=== PATIENT | female | born 1945 | race Caucasian/White ===

== ENCOUNTER 2016-06-08 11:20 | Inpatient (IN) | payer MEDICARE, OTHER ==
[~2016-06-08] VITALS: Ht 152.4 cm; Wt 65.5 kg
[2016-06-08 11:25] VITALS: BP 139/77; PULSE 97; RESP 18; O2SAT 96
--- NOTE | 2016-06-08 11:48 | ED.REPORT ---
HPI-General Illness Date of Service Jun 08, 2016 ED Provider: Amol Bryant DO 70 year old female with large B-cell lymphoma presents to the ER accompanied by her daughter complaining of several weeks of fever and chills. Symptoms presented with hematuria earlier this month, at which time she was placed on a course of Ciprofloxacin May 28 - June 04. She was seen at urgent care in [facility] last night where she was treated with IV fluids and single dose IV antibiotics, received blood and urine tests, and diagnosed with kidney infection. Associated symptoms include pruritic facial rash that awakened her from sleep last night, shortness of breath, increased urinary frequency, urinary incontinence, two bouts of vomiting between 3 and 5 days ago, mild sore throat, and chronic abdominal pain secondary to underlying cancer diagnosis. Patient denies cough, and throat swelling. Patient has been undergoing regular chemotherapy treatments, last treatment was May 13, 2016. Nursing Notes Stated Complaint: CHILLS/POSSIBLE KIDNEY INFECTION Chief Complaint: General Complaint Nursing Notes Reviewed: Yes Allergies: Coded Allergies: Sulfa (Sulfonamide Antibiotics) (Verified Allergy, Severe, Hives, 06/08/16) Beta-Blockers (Beta-Adrenergic Bloc (Verified Adverse Reaction, Severe, swelling, 06/08/16) TAPE (Verified Adverse Reaction, Severe, Rash, 06/08/16) gabapentin (Verified Adverse Reaction, Severe, leg swelling, 06/08/16) Scheduled Esomeprazole Magnesium (Nexium) 20 Mg Capsule.dr 20 MG PO DAILY Fexofenadine (Fexofenadine) 60 Mg Tablet 60 MG PO HS Losartan Potassium (Losartan Potassium) 50 Mg Tablet 50 MG PO QAM Lovastatin (Lovastatin) 20 Mg Tablet 20 MG PO HS Metformin (Metformin) 500 Mg Tablet 500 MG PO BID Scheduled PRN Lorazepam (Ativan) 0.5 Mg Tablet 0.5 MG PO DAILY PRN PRN For Anxiety or Agitation Ondansetron ODT (Ondansetron ODT) 4 Mg Tab.rapdis 4 MG PO DAILY PRN PRN For Nausea Prochlorperazine Maleate (Prochlorperazine) 10 Mg Tablet 10 MG PO DAILY PRN PRN For Nausea General Time Seen by MD: 11:44 Chief Complaint Fever Hx Obtained From: Patient Arrived By: Walk-in Onset Occurred: More than a week ago... (4 weeks) Symptom Duration: Since onset Associated with: Reports: Nausea, Rash, Shortness of breath, Vomiting, Denies: Cough Context Related History: Reports Cancer Recent Healthcare: Recent doctor visit Past Medical History Past Medical History Notes: Oncologist: Adriane Bonner, [facility] ([place], [place]) [employer] Past Medical History UTI Kidney stones Reports: Cancer (Lymphoma) Smoking History Unknown if Ever Smoker Social History Other Social History: Good social support Ambulatory Status Independent Review of Systems Full Review of Systems Constitutional: Reports: Chills, Fever Ears / Nose / Throat: Reports: Sore throat, Denies: Throat swelling, Tongue swelling Respiratory: Reports: Shortness of breath, Denies: Non-productive cough Cardiovascular: Denies: Chest pain GI: Reports: Abdominal pain, Nausea, Vomiting, Denies: Constipation, Diarrhea, Hematemesis, Hematochezia Female: Reports: Flank pain, Hematuria, Incontinence, Urinary frequency Musculoskeletal: Reports: Back pain Skin: Reports Itching, Reports Rash Neurologic: Denies: Numbness Complete sys rev & neg: except as marked. Physical Exam Vital Signs Vital Signs Date Time Temp Pulse Resp B/P Pulse Ox O2 Delivery O2 Flow Rate FiO2 06/08/16 14:54 74 21 139/67 97 Room Air 06/08/16 11:25 36.9 97 18 139/77 96 Room Air Initial VS: Reviewed Head / Eyes: Atraumatic, Normocephalic Neck: Supple, Non-tender, Full range of motion Extremities: Vascular intact, Neuro intact, No swelling, No tenderness Neurologic: Alert, Oriented, Nonfocal Psychiatric: Mood/affect normal, Behavior normal, Normal thought content General/Constitutional: Awake, Alert Respiratory / Chest: Breath sounds NL, No respiratory distress, No rales, No rhonchi, No wheezing Cardiovascular: Heart rate NL, Regular rhythm, Heart sounds NL, Cap refill not delayed, Peripheral circulation NL Back: Full range of motion, No midline vertebral tend Left CVA tenderness Skin: Warm, Dry, Intact Color / Condition: Positive: Rash present Rash / Lesion Notes: Malar rash Rash / Lesion Location: Positive: Face Interpretation & Diagnostics Lab Results Interpretation Result Diagram: 06/08/16 1210 06/08/16 1210 Test 06/08/16 12:10 06/08/16 14:14 White Blood Count 5.8th/mm3 (3.8-10.1) Red Blood Count 2.90mil/mm3 (3.90-5.20) Hemoglobin 8.3g/dL (12.0-15.6) Hematocrit 26.2% (35.0-46.0) Mean Corpuscular Volume 90.3fL (81-100) Mean Corpuscular Hemoglobin 28.6pg (27.0-35.0) Mean Corpuscular Hemoglobin Concent 31.7% (32.0-37.0) Red Cell Distribution Width 15.7% (12.3-15.4) Platelet Count 64bil/L (150-400) Neutrophils (%) (Auto) 78.1% (40-74) Lymphocytes (%) (Auto) 6.4% (14-46) Monocytes (%) (Auto) 13.6% (4-12) Eosinophils (%) (Auto) 1.2% (0-5) Basophils (%) (Auto) 0.5% (0-3) Sodium Level 134mEq/L (134-144) Potassium Level 3.4mEq/L (3.5-5.2) Chloride Level 98mEq/L (97-108) Carbon Dioxide Level 21mmol/L (18-29) Blood Urea Nitrogen 16mg/dL (8-27) Creatinine 0.80mg/dL (0.57-1.00) Estimat Glomerular Filtration Rate 102mL/min (>59) Glucose Level 138mg/dL (60-99) Lactic Acid Level 0.9mmol/L (0.4-2.0) Calcium Level 9.7mg/dL (8.5-10.1) Magnesium Level 1.1mg/dL (1.6-2.6) Total Bilirubin 0.3mg/dL (0.0-1.2) Aspartate Amino Transf (AST/SGOT) 20U/L (0-50) Alanine Aminotransferase (ALT/SGPT) 7U/L (0-32) Alkaline Phosphatase 60U/L (25-165) Total Protein 5.8g/dL (6.4-8.4) Albumin 3.1g/dL (3.4-5.0) Lipase 20U/L (13-60) Urine Color Straw (YELLOW) Urine Appearance Hazy (CLEAR,HAZY) Urine pH 6.5 (5.0-8.0) Urine Specific [place] 1.015 (1.003-1.035) Urine Protein Tracemg/dL (NEG,TRACE) Urine Glucose (UA) Negativemg/dL (NEGATIVE) Urine Ketones Negativemg/dL (NEGATIVE) Urine Occult Blood Large (NEGATIVE) Urine Nitrite Negative (NEGATIVE) Urine Bilirubin Negative (NEGATIVE) Urine Urobilinogen Normalmg/dL (NORMAL) Urine Leukocyte Esterase Trace (NEGATIVE) Urine RBC 11-50/hpf (0-2) Urine WBC 6-10/hpf (0-5) Urine Epithelial Cells Occasional/hpf (NONE-MOD) Urine Crystals None seen (NONE SEEN) Urine Bacteria None/hpf (NONE-FEW) Urine Hyaline Casts None/lpf (NONE) Urine Granular Casts None seen (NONE SEEN) Urine Waxy Casts None seen (NONE SEEN) Urine Red Blood Cell Casts None seen (NONE SEEN) Urine White Blood Cell Casts None seen (NONE SEEN) Urine Mucus None seen (None Seen) Urine Trichomonas None seen (NONE SEEN) Urine Yeast None (NONE SEEN) Urinalysis Comment None Urine Culture Reflexed Indicated CT Abd / Pelvis Interpretation IMPRESSION: 1. Enlarged heterogeneous appearance of the left kidney with appearance of multiple soft tissue masses appearing within the renal parenchyma as well as within the exophytic regions. There are also ill-defined soft tissue density is identified superior to the kidney at the confluence of the stomach and spleen as well as the medial aspect of the kidney at the level of the aorta encompassing the renal artery and vein. Overall appearance appears most suggestive of given history of lymphoma involvement. However, lack of IV contrast and prior exams limit evaluation. Superimposed or other etiologies such as infection or inflammation include pyelonephritis or potentially areas of renal infarction secondary to tumor involvement of the renal vasculature cannot be excluded. The findings were discussed with Dr. Amol Bryant on 06/08/16 at 2:20 PM. Dictated by: Lizzie Morin M.D. on 06/08/2016 at 14:13 Approved by: Lizzie Morin M.D. on 06/08/2016 at 14:39 Study type: Abdominal CT no contrast Interpretation / Wet Read by: Interpret - Radiologist Re-Eval/Medical Decision Med Decision/Clinical Course This is an immunocompromise patient with signs and symptoms of pyelonephritis associated with Moreno's and chills generalized weakness. She does not have septic parameters based on lab value however this is obscured by recent antibiotic use and again immunocompromise. Conversation is had with her primary oncologist who recommended conservative management if there is any question as to whether or not the patient could be having septic. After discussion with the patient she continues to feel ill despite interventions in the ER and they do have concern that this could be occult bacteremia and should warrant hospitalization given the fragility of her medical conditions and associated immunocompromise. Source of Hx: Old records, Family Summary of Info: Na 127 Creatinine 1.06 WBC 9 Hgb 9.8 Platelet 103 Urine Culture 05/28/16: mixed urogenital felipe Time of Eval: 14:12 Re-Evaluation/Progress Note: Patient's rash is marginally improved. Updated her on the plan of care. Time of Eval: 14:50 Re-Evaluation/Progress Note: Discussed lab and CT results, physical examination findings and plan to discharge. Patient is amenable to the plan. Return precautions given. All other questions addressed. Consultation #1: Consulted With: On-call physician (Radiology) Call Returned at: 14:29 Note: Radiology called to discuss patient's CT results. Consultation #2: Consulted With: On-call physician (Oncology) Call Returned at: 14:37 Note: Discussed patient's case with her oncologist, Dr. Adriane Bonner. Comfortable with discharging the patient if she is not septic. Consultation #3: Referral / Consult Name: Tatianna Camp MD Consulted With: Hospitalist Call Returned at: 15:40 Note: Spoke with Dr. Camp who states Dr. Ledezma will be accepting the admit and recommends paging Dr. Ledezma. States that if Dr. Ledezma unable to take admit Dr. Camp will accept admit at a later time. Consultation #4: Referral / Consult Name: Frank Ledezma MD Consulted With: Hospitalist Call Returned at: 15:55 Dyno Technician: Accepts admit Counseled Regarding: Diagnosis, Lab results, Need for admission Discharge & Departure Primary Impression: Pyelonephritis Disposition: ADMITTED TO HOSPITAL Discharge Condition All VS Reviewed: Yes Condition: Stable Scribe Attestation Portions of this note were transcribed by Antonio Pond. I, Dr. Bryant, personally performed the history, physical exam and medical decision-making; I reviewed and confirmed the accuracy of the information in the transcribed note. Signed by: Abhijit Pettit, 06/08/2016 and 15:11 Amol Bryant DO Jun 08, 2016 11:48 ANTONIO POND Jun 08, 2016 12:04
[2016-06-08] MEDS ORDERED: 0.9% Sodium Chloride 1,000 ML IV ONE (12:25)
[2016-06-08] MEDS ORDERED: diphenhydrAMINE 25 mg Capsule PO ONE (12:30)
[2016-06-08 12:43] LABS: BASOPHILS % (AUTO) 0.5 % (0-3); EOSINOPHILS % (AUTO) 1.2 % (0-5); MONOCYTES % (AUTO) 13.6 % (4-12); Mean Corpuscular Hemoglobin 28.6 pg (27.0-35.0); Mean Corpuscular Volume 90.3 fL (81-100); NEUTROPHILS % (AUTO) 78.1 % (40-74); Platelet Count 64 bil/L (150-400)
[2016-06-08] MEDS: Ondansetron 2 mg/mL 2 mL Inj IVPUSH PRN ×2 (12:55→17:46)
[2016-06-08 13:13] LABS: Magnesium 1.1 mg/dL (1.6-2.6)
[2016-06-08] MEDS ORDERED: Magnesium Sulf 4 Gm/100 mL H2O 4 GM in IV Premix 1 EACH IV ONE (13:20)
[2016-06-08 14:41] LABS: APPEARANCE,URINE HAZY (CLEAR,HAZY); COLOR,URINE STRAW (YELLOW); OCCULT BLOOD,URINE LARGE (NEGATIVE); PH,URINE 6.5 (5.0-8.0)
--- NOTE | 2016-06-08 14:41 | DRSVH ---
PROCEDURE: CT KUB ([id number]) INDICATIONS: flank pain, hematuria, chills TECHNIQUE: Noncontrast 5 mm thick sections acquired from the diaphragms to the symphysis. 5 mm thick coronal an d sagittal reformats were then performed. For radiation dose reduction, the following was used: aut omated exposure control, adjustment of mA and/or kV according to patient size. COMPARISON: None. FINDINGS: Image quality: Excellent. Lung bases: Lung bases are clear. Heart size is normal. Urinary system: The right kidney and ureter are unremarkable. The left kidney appears enlarged. Ther e are multiple areas of heterogeneous soft tissue attenuation identified within the renal parenchyma as well as exophytic areas within the superior and inferior poles. There is prominent perinephric str anding as well as poorly defined soft tissue masses along the superior aspect of the kidney at the co nfluence of the spleen and stomach. There is soft tissue density identified medial to the left kidney and direct approximation to the aorta obscured evaluation of the renal artery and renal vein at this level. There is a 2 mm calcification identified within the lower pole. While there is a slight promi nence of the left renal collecting system, gross obstruction is not well delineated. There is a poorl y defined soft tissue density are also noted along the medial aspect of the stomach as well as nodula r areas within the mesentery of the left upper quadrant. Both ureters appear non-dilated throughout t heir expected courses. Bladder wall thickness is normal; no calcified bladder stones. Other solid organs: Liver and spleen are normal in size. Gallbladder is unremarkable. Pancreas is normal in contours. No adrenal nodules. Peritoneum and bowel: Unenhanced bowel loops demonstrate normal wall thickness and caliber. No free fluid or air. Nodes and vessels: No retroperitoneal or mesenteric adenopathy by size criteria. Aorta and inferior vena cava are normal in caliber. Abdominal wall: No ventral hernias. Pelvis: No free pelvic fluid. No inguinal hernias or adenopathy. Bones: No suspicious bony lesions. No vertebral body compression fractures. IMPRESSION: 1. Enlarged heterogeneous appearance of the left kidney with appearance of multiple soft tissue meaghan s appearing within the renal parenchyma as well as within the exophytic regions. There are also ill-d efined soft tissue density is identified superior to the kidney at the confluence of the stomach and spleen as well as the medial aspect of the kidney at the level of the aorta encompassing the renal ar mekhi and vein. Overall appearance appears most suggestive of given history of lymphoma involvement. H owever, lack of IV contrast and prior exams limit evaluation. Superimposed or other etiologies such a s infection or inflammation include pyelonephritis or potentially areas of renal infarction secondary to tumor involvement of the renal vasculature cannot be excluded. The findings were discussed with Dr. Amol Bryant on 06/08/16 at 2:20 PM. Dictated by: Lizzie Morin M.D. on 06/08/2016 at 14:13 Approved by: Lizzie Morin M.D. on 06/08/2016 at 14:39
[2016-06-08 14:42] LABS: UROBILINOGEN,URINE NORMAL (NORMAL)
[2016-06-08 14:54] VITALS: BP 139/67; PULSE 74; RESP 21; O2SAT 97
[2016-06-08] MEDS ORDERED: Piperacillin-Tazo 3.375 Gm Inj 3.375 GM in Dextrose 5% Minibag Plus 50 ML IV ONE (14:55)
[2016-06-08] MEDS ORDERED: FEXO-46 PO (15:25)
[2016-06-08] MEDS ORDERED: METF500T4 PO (15:25)
[2016-06-08] MEDS ORDERED: LOVA20TA PO (15:25)
[2016-06-08] MEDS ORDERED: LORA-302 PO (15:25)
[2016-06-08] MEDS ORDERED: ESOM20CA28 PO (15:25)
[2016-06-08] MEDS ORDERED: PROC10TA PO (15:25)
[2016-06-08] MEDS ORDERED: LOSA50TA37 PO (15:25)
[2016-06-08] MEDS ORDERED: ONDA4TAB12 PO (15:25)
[2016-06-08] MEDS ORDERED: Alum-Mag Hydrox-Simeth 30 mL Suspension PO PRN (16:05)
--- NOTE | 2016-06-08 16:18 | PCM.HPMED ---
Subjective Date of Service Jun 08, 2016 Primary Provider: Admitting Physician: Frank Ledezma MD Primary Care Physician: Johnnie Jimenez Attending Physician: Frank Ledezma MD Chief Complaint: Fever, chills, UTI History of Present Illness: 70 year old female with large B-cell lymphoma involving intra-abdominal structures , currently in chemotherapy last session being on 05/13/2016, she is schedule for the next session on 06/13/2016. Patient was sent to the emergency room by her primary oncologist due to symptom of cough rash, being shaky and having chills after she received cefuroxime at an urgent care for urinary septum. Patient reported that she has been having hematuria earlier this month for which she was put on ciprofloxacin. She took the Cipro for 10 days of last Saturday. Her urinary symptom symptoms recurred and last night where she was treated with IV fluids and single dose IV antibiotics, received blood and urine tests, and diagnosed with kidney infection. Associated symptoms include pruritic facial rash that awakened her from sleep last night, shortness of breath, increased urinary frequency, urinary incontinence, two bouts of vomiting between 3 and 5 days ago, mild sore throat, and chronic abdominal pain secondary to underlying cancer diagnosis. Patient denies cough, and throat swelling. She was instructed by her primary oncologist to come to the hospital for further evaluation. Review of Systems: Review of symptom by 12 points is negative except for what is described above in history of present illness Allergies Coded Allergies: Sulfa (Sulfonamide Antibiotics) (Verified Allergy, Severe, Hives, 06/08/16) Beta-Blockers (Beta-Adrenergic Bloc (Verified Adverse Reaction, Severe, swelling, 06/08/16) TAPE (Verified Adverse Reaction, Severe, Rash, 06/08/16) gabapentin (Verified Adverse Reaction, Severe, leg swelling, 06/08/16) Home Medications Scheduled Esomeprazole Magnesium (Nexium) 20 Mg Capsule.dr 20 MG PO DAILY Fexofenadine (Fexofenadine) 60 Mg Tablet 60 MG PO HS Losartan Potassium (Losartan Potassium) 50 Mg Tablet 50 MG PO QAM Lovastatin (Lovastatin) 20 Mg Tablet 20 MG PO HS Metformin (Metformin) 500 Mg Tablet 500 MG PO BID Scheduled PRN Lorazepam (Ativan) 0.5 Mg Tablet 0.5 MG PO DAILY PRN PRN For Anxiety or Agitation Ondansetron ODT (Ondansetron ODT) 4 Mg Tab.rapdis 4 MG PO DAILY PRN PRN For Nausea Prochlorperazine Maleate (Prochlorperazine) 10 Mg Tablet 10 MG PO DAILY PRN PRN For Nausea PMH Lymphoma, UTI Surgical History None Family History Family history reviewed and is noncontributory to the present illness Social History Hx Alcohol Use: No Hx Substance Use: No Smoking Status: Unknown if Ever Smoker Living Arrangement: with Family Exam Vital Signs Vital Sign - Last Date Time Temp Pulse Resp B/P Pulse Ox O2 Delivery O2 Flow Rate FiO2 06/08/16 14:54 74 21 139/67 97 Room Air 06/08/16 11:25 36.9 Exam Chronically ill-appearing female. In bed comfortably very pleasant. HEENT : Normocephalic and atraumatic, sclerae anicteric. Mouth:no oral thrush. Moist oral mucosa Neck: Supple, no cervical lymphadenopathy, no JVD, trachea is midline Chest: Normal respiratory effort, no use of accessory muscle of respiration. Lungs: Clear bilaterally,, no wheezing. heart: s1, s2 regular rate and rhythm, no gallop, no murmur. abdomen: soft, audible bowel sounds are quite. tenderness left flank area and there is a palpable mass Extremity: No edema, no cyanosis, tenderness Skin: No rash, no ulcers. Neuro : Awake, alert, oriented 3. Grossly non focal Lab and Diagnostics Result Diagram: 06/08/16 1210 06/08/16 1210 Microbiology Urine culture and blood culture all pending X-Rays, CTs and MRIs Abdominal CT scan reviewed; Image quality: Excellent. Lung bases: Lung bases are clear. Heart size is normal. Urinary system: The right kidney and ureter are unremarkable. The left kidney appears enlarged. There are multiple areas of heterogeneous soft tissue attenuation identified within the renal parenchyma as well as exophytic areas within the superior and inferior poles. There is prominent perinephric stranding as well as poorly defined soft tissue masses along the superior aspect of the kidney at the confluence of the spleen and stomach. There is soft tissue density identified medial to the left kidney and direct approximation to the aorta obscured evaluation of the renal artery and renal vein at this level. There is a 2 mm calcification identified within the lower pole. While there is a slight prominence of the left renal collecting system, gross obstruction is not well delineated. There is a poorly defined soft tissue density are also noted along the medial aspect of the stomach as well as nodular areas within the mesentery of the left upper quadrant. Both ureters appear non-dilated throughout their expected courses. Bladder wall thickness is normal; no calcified bladder stones. Other solid organs: Liver and spleen are normal in size. Gallbladder is unremarkable. Pancreas is normal in contours. No adrenal nodules. Peritoneum and bowel: Unenhanced bowel loops demonstrate normal wall thickness and caliber. No free fluid or air. Nodes and vessels: No retroperitoneal or mesenteric adenopathy by size criteria. Aorta and inferior vena cava are normal in caliber. Abdominal wall: No ventral hernias. Pelvis: No free pelvic fluid. No inguinal hernias or adenopathy. Bones: No suspicious bony lesions. No vertebral body compression fractures. IMPRESSION: 1. Enlarged heterogeneous appearance of the left kidney with appearance of multiple soft tissue masses appearing within the renal parenchyma as well as within the exophytic regions. There are also ill-defined soft tissue density is identified superior to the kidney at the confluence of the stomach and spleen as well as the medial aspect of the kidney at the level of the aorta encompassing the renal artery and vein. Overall appearance appears most suggestive of given history of lymphoma involvement. However, lack of IV contrast and prior exams limit evaluation. Superimposed or other etiologies such as infection or inflammation include pyelonephritis or potentially areas of renal infarction secondary to tumor involvement of the renal vasculature cannot be excluded. The findings were discussed with Dr. Amol Bryant on 06/08/16 at 2:20 PM. Dictated by: Lizzie Morin M.D. on 06/08/2016 at 14:13 Approved by: Lizzie Morin M.D. on 06/08/2016 at 14:39 Assessment & Plan 1. Complicated UTI : Start Zosyn 3.375 mg IV q8H. patient was initially treated with empiric Cipro for symptom of UTI for 10 days. Symptoms after ciprofloxacin course was completed. Patient received cefuroxime and develop allergic reaction ( rash) but no swelling or shortness of breath. CT scan on presentation show mass involving left kidney. Possible paranoid nephritis as well. No hydronephrosis Obtain urine culture, blood culture. Consider consult urology. 2. Pyelonephritis : Zosyn 3. History of lymphoma.: Patient last chemotherapy session was on 05/13/2016. Next session is scheduled for next Saturday06/13/2016 . Her oncologist is . The finding of the CT scan shows There are multiple areas of heterogeneous soft tissue attenuation identified within the renal parenchyma as well as exophytic areas within the superior and inferior poles. There is prominent perinephric stranding as well as poorly defined soft tissue masses along the superior aspect of the kidney at the confluence of the spleen and stomach. There is soft tissue density identified medial to the left kidney and direct approximation to the aorta obscured evaluation of the renal artery and renal vein at this level These lesions are not new per daughter at bedside who keep record of her medical issues . She will follow up with her primary oncologist on discharge . 4. Hypokalemia : Replace electrolytes when necessary 5. Hypomagnesemia : The patient magnesium 6. Immunocompromised : Secondary to chemotherapy. She is not no troponin at this time 8. Pancytopenia: Secondary to chemotherapy This is a very sick patient, immunocompromised, currently on chemotherapy for lymphoma of the abdomen. She failed outpatient treatment to UTI and now developed pyelonephritis. Plan is for his antibiotics with Zosyn. Given her exposure to antibiotics recently we may not be able to catch anything and her urine culture. SCD for DVT prophylaxis. Tylenol when necessary for pain and fever. Zofran for nausea and vomiting Benadryl for itching. Hospital stay revealing 2-3 days is anticipated in recovery is expected Time spent 75 minutes Frank Ledezma MD Jun 08, 2016 16:18
[2016-06-08] MEDS: 0.9% Sodium Chloride 1,000 ML IV SCH (17:22)
[2016-06-08 17:31] VITALS: BP 137/78; PULSE 75; RESP 16; O2SAT 98
--- NOTE | 2016-06-08 18:04 | NUR ---
Admit Pt arrived on the unit at 1700. Brought up via wheelchair by ED staff. NS running at 100ml/hr through portacath. She complains of L flank pain and was given tylenol x1. Also reports nausea and was given zofran x1. Has a pink, irregular rash on her face and was given PRN benadryl. Oriented to room, call light, and instructed to call for assistance when getting out of bed.
[2016-06-08 20:26] VITALS: BP 111/63; PULSE 70; RESP 16; O2SAT 94
[2016-06-09] VITALS (10 sets, daily range): BP systolic 120–163; BP diastolic 61–81; PULSE 68–93; RESP 14–20; O2SAT 94–100
[2016-06-09] MEDS: Piperacillin-Tazo 3.375 Gm Inj 3.375 GM in Dextrose 5% Minibag Plus 50 ML IV SCH ×3 (01:03→17:08)
[2016-06-09] MEDS: Ondansetron 2 mg/mL 2 mL Inj IVPUSH PRN ×3 (01:08→16:47)
--- NOTE | 2016-06-09 05:49 | NUR ---
Pain/Nausea/Rash/Chills Medicated x 1 w/tylenol , IV benadryl , and Zosyn w/effect Facial rash improving , did experience episode of chills w/out fever
[2016-06-09] MEDS: 0.9% Sodium Chloride 1,000 ML IV SCH (07:45)
[2016-06-09 09:02] LABS: Mean Corpuscular Hemoglobin 28.2 pg (27.0-35.0); Mean Corpuscular Volume 90.6 fL (81-100)
[2016-06-09 10:08] LABS: Magnesium 1.8 mg/dL (1.6-2.6)
[2016-06-09] MEDS ORDERED: LORazepam 0.5 mg Tablet PO PRN (11:00)
[2016-06-09 11:48] LABS: BASOPHILS % (AUTO) 0.3 % (0-3); EOSINOPHILS % (AUTO) 4.1 % (0-5); MONOCYTES % (AUTO) 14.7 % (4-12); NEUTROPHILS % (AUTO) 68.6 % (40-74)
--- NOTE | 2016-06-09 15:24 | PCM.PNMED ---
Subjective Date of Service Jun 09, 2016 Subjective Follow-up follow computed UTI, pyelonephritis, abdominal pain, anemia secondary to chemotherapy. Patient seen and examined at bedside. She is feeling somewhat better today abdominal pain is quite slight and no nausea no vomiting. Hemoglobin dropped to 7.2 today. No melena, no hematuria, no hemoptysis or hematemesis. Platelet count is 56 Exam Vital Signs Vital Sign - Last Date Time Temp Pulse Resp B/P Pulse Ox O2 Delivery O2 Flow Rate FiO2 06/09/16 12:54 36.9 69 14 146/81 98 Room Air Intake and Output 06/08/16 06/08/16 06/09/16 Cumulative From/Thru 15:00 23:00 07:00 06/08/16 11:25 - 06/09/16 06:29 Intake Total 1000 ml 2240 ml 3240 ml Output Total 1250 ml 1250 ml Balance 1000 ml 990 ml 1990 ml Intake Oral 360 ml 360 ml IV Total 1000 ml 1880 ml 2880 ml Output Urine Total 1250 ml 1250 ml # Voids 1 1 # Bowel Movements 0 0 Exam Chronically : In bed comfortably very pleasant. NAD HEENT : sclerae anicteric. Mouth:no oral thrush. Moist oral mucosa Neck: No cervical lymphadenopathy, no JVD, trachea is midline. Chest: No use of accessory muscle of respiration. Lungs: Clear bilaterally,, no wheezing, No crackles Heart: Normophonetic Abdomen: BS all quadrants. Mild left flank tenderness. Skin: No rash, no ulcers. Neuro : Awake, alert, oriented 3. Grossly non focal IVs and Medications Medications Reviewed: Medications were reviewed in detail Lab and Diagnostics Result Diagram: 06/09/16 0706/09/16 07 Microbiology Urine culture and blood culture all pending X-Rays, CTs and MRIs Abdominal CT scan reviewed; Image quality: Excellent. Lung bases: Lung bases are clear. Heart size is normal. Urinary system: The right kidney and ureter are unremarkable. The left kidney appears enlarged. There are multiple areas of heterogeneous soft tissue attenuation identified within the renal parenchyma as well as exophytic areas within the superior and inferior poles. There is prominent perinephric stranding as well as poorly defined soft tissue masses along the superior aspect of the kidney at the confluence of the spleen and stomach. There is soft tissue density identified medial to the left kidney and direct approximation to the aorta obscured evaluation of the renal artery and renal vein at this level. There is a 2 mm calcification identified within the lower pole. While there is a slight prominence of the left renal collecting system, gross obstruction is not well delineated. There is a poorly defined soft tissue density are also noted along the medial aspect of the stomach as well as nodular areas within the mesentery of the left upper quadrant. Both ureters appear non-dilated throughout their expected courses. Bladder wall thickness is normal; no calcified bladder stones. Other solid organs: Liver and spleen are normal in size. Gallbladder is unremarkable. Pancreas is normal in contours. No adrenal nodules. Peritoneum and bowel: Unenhanced bowel loops demonstrate normal wall thickness and caliber. No free fluid or air. Nodes and vessels: No retroperitoneal or mesenteric adenopathy by size criteria. Aorta and inferior vena cava are normal in caliber. Abdominal wall: No ventral hernias. Pelvis: No free pelvic fluid. No inguinal hernias or adenopathy. Bones: No suspicious bony lesions. No vertebral body compression fractures. IMPRESSION: 1. Enlarged heterogeneous appearance of the left kidney with appearance of multiple soft tissue masses appearing within the renal parenchyma as well as within the exophytic regions. There are also ill-defined soft tissue density is identified superior to the kidney at the confluence of the stomach and spleen as well as the medial aspect of the kidney at the level of the aorta encompassing the renal artery and vein. Overall appearance appears most suggestive of given history of lymphoma involvement. However, lack of IV contrast and prior exams limit evaluation. Superimposed or other etiologies such as infection or inflammation include pyelonephritis or potentially areas of renal infarction secondary to tumor involvement of the renal vasculature cannot be excluded. The findings were discussed with Dr. Amol Bryant on 06/08/16 at 2:20 PM. Dictated by: Lizzie Morin M.D. on 06/08/2016 at 14:13 Approved by: Lizzie Morin M.D. on 06/08/2016 at 14:39 Assessment & Plan 1. Complicated UTI : Continue Zosyn 3.375 mg IV q8H. I anticipate at least 3 days of IV antibiotics. Culture are pending 2. Pyelonephritis : Zosyn 3. History of lymphoma. Patient last chemotherapy session was on 05/13/2016. Next session is scheduled for next Saturday06/13/2016 . Her oncologist is Dr . The finding of the CT scan shows There are multiple areas of heterogeneous soft tissue attenuation identified within the renal parenchyma as well as exophytic areas within the superior and inferior poles. There is prominent perinephric stranding as well as poorly defined soft tissue masses along the superior aspect of the kidney at the confluence of the spleen and stomach. There is soft tissue density identified medial to the left kidney and direct approximation to the aorta obscured evaluation of the renal artery and renal vein at this level These lesions are not new per daughter at bedside who keep record of her medical issues . She will follow up with her primary oncologist on discharge . 4. Hypokalemia : Replace electrolytes when necessary 5. Hypomagnesemia : The patient magnesium 6. Immunocompromised : Secondary to chemotherapy. She is not no troponin at this time 8. Pancytopenia: Secondary to chemotherapy. Her hemoglobin today 7.2. I will transfuse her 2 units PRBC Patient is overall improved. Abdominal pain subsided as well has chills and fevers. Continue Zosyn for complicated UTI and pyelonephritis. Blood transfusion is being provided for severe anemia secondary to chemotherapy. VTE Prophylaxis: SCDs Resuscitation Status: CPR: Attempt Resuscitation Time spent 35 minutes Frank Ledezma MD Jun 09, 2016 15:24
--- NOTE | 2016-06-09 16:06 | NUR ---
Social work note - Initial assessment Antoinette Jolley is a 70 yr old admitted for pyelonephritis. EMR reviewed: Pt has Medicare and [employer]. Her PCP is at [facility]. Readmit score is 2. Pt does not have VA benefits or LTC insurance. See attached CM initial assessment. [employer] MAN met with pt - introduced d/c planning and explained SW role. Pt lives at home with her daughter and grand daughter in [place]. She is in cancer treatment and states that her family is supportive with rides to doctor appointments and support at home. She uses no DME, has grab bars in the shower and a shower chair if needed. She plans to d/c home when stable. Pt states she has an insurance casemanager from [employer] who is helpful - DRAG OUT MAN offered home health, pt declined at this time. DRAG OUT MAN asked Pt to bring in DPOA paperwork from home. No other needs identified. plan: Home with family in [place] when medically stable. CAIN Pierce Addendum: 06/09/16 at 1613 by ANNA PABLO SS Amended: Links added.
--- NOTE | 2016-06-09 16:34 | NUR ---
Temp/shivering Pt having uncontrolled shivering, temp 37.3. Hospitalist notified. Order received to draw blood cultures and then infuse PRBC's.
[2016-06-09] MEDS: 0.9% Sodium Chloride 250 ML IV SCH (18:31)
--- NOTE | 2016-06-09 19:42 | NUR ---
PRBC First of 2 unit prbc hung
[2016-06-09] MEDS ORDERED: 0.9% Sodium Chloride 100 ML ONE (21:17)
[2016-06-10 00:20] VITALS: BP 149/84; PULSE 60; RESP 17; O2SAT 97
[2016-06-10] MEDS: Piperacillin-Tazo 3.375 Gm Inj 3.375 GM in Dextrose 5% Minibag Plus 50 ML IV SCH ×3 (00:31→16:34)
[2016-06-10 04:41] VITALS: BP 144/76; PULSE 54; RESP 16; O2SAT 97
[2016-06-10] MEDS: 0.9% Sodium Chloride 1,000 ML IV SCH ×3 (04:41→08:01)
[2016-06-10 08:04] VITALS: BP 157/86; PULSE 60; RESP 16; O2SAT 99
[2016-06-10] MEDS: Ondansetron 2 mg/mL 2 mL Inj IVPUSH PRN ×3 (08:06→18:31)
[2016-06-10 09:02] LABS: BASOPHILS % (AUTO) 0.3 % (0-3); EOSINOPHILS % (AUTO) 4.1 % (0-5); MONOCYTES % (AUTO) 8.9 % (4-12); Mean Corpuscular Hemoglobin 28.6 pg (27.0-35.0); Mean Corpuscular Volume 88.4 fL (81-100); NEUTROPHILS % (AUTO) 75.6 % (40-74); Platelet Count 46 bil/L (150-400)
--- NOTE | 2016-06-10 10:50 | PCM.PNMED ---
Subjective Date of Service Jun 10, 2016 Subjective Follow up for complicate UTI, pyelonephritis , anemia S/p 2 units of PRBC yesterday and tolerated well . No CP, no SOB. afebrile Exam Vital Signs Vital Sign - Last Date Time Temp Pulse Resp B/P Pulse Ox O2 Delivery O2 Flow Rate FiO2 06/10/16 08:04 36.9 60 16 157/86 99 Room Air Intake and Output 06/09/16 06/09/16 06/10/16 Cumulative From/Thru 15:00 23:00 07:00 06/08/16 11:25 - 06/10/16 06:05 Intake Total 1598 ml 1949 ml 6787 ml Output Total 1500 ml 2750 ml Balance 1598 ml 449 ml 4037 ml Intake Oral 650 ml 240 ml 1250 ml IV Total 632 ml 1442 ml 4954 ml Packed Cells 316 ml 267 ml 583 ml Output Urine Total 1150 ml 2400 ml Urine/Stool Mix 350 ml 350 ml # Voids 6 7 # Bowel Movements 2 2 Exam Chronically : NAD, Pleasant HEENT : sclerae anicteric. Mouth:n Moist oral mucosa Neck: supple. No cervical lymphadenopathy, no JVD, trachea is midline. Chest: No use of accessory muscle of respiration. No chest wall tenderness Lungs: Clear bilaterally on auscultation,, no wheezing, No crackles Heart: S1S2, RRR no gallop Abdomen: BS all quadrants. Non tender, non distended . Skin: No rash, no ulcers. Neuro : Awake, alert, oriented 3. Grossly intact IVs and Medications Medications Reviewed: Medications were reviewed in detail Lab and Diagnostics Result Diagram: 06/10/16 0857 06/10/16 0857 Microbiology Urine culture and blood culture all pending X-Rays, CTs and MRIs Abdominal CT scan reviewed; Image quality: Excellent. Lung bases: Lung bases are clear. Heart size is normal. Urinary system: The right kidney and ureter are unremarkable. The left kidney appears enlarged. There are multiple areas of heterogeneous soft tissue attenuation identified within the renal parenchyma as well as exophytic areas within the superior and inferior poles. There is prominent perinephric stranding as well as poorly defined soft tissue masses along the superior aspect of the kidney at the confluence of the spleen and stomach. There is soft tissue density identified medial to the left kidney and direct approximation to the aorta obscured evaluation of the renal artery and renal vein at this level. There is a 2 mm calcification identified within the lower pole. While there is a slight prominence of the left renal collecting system, gross obstruction is not well delineated. There is a poorly defined soft tissue density are also noted along the medial aspect of the stomach as well as nodular areas within the mesentery of the left upper quadrant. Both ureters appear non-dilated throughout their expected courses. Bladder wall thickness is normal; no calcified bladder stones. Other solid organs: Liver and spleen are normal in size. Gallbladder is unremarkable. Pancreas is normal in contours. No adrenal nodules. Peritoneum and bowel: Unenhanced bowel loops demonstrate normal wall thickness and caliber. No free fluid or air. Nodes and vessels: No retroperitoneal or mesenteric adenopathy by size criteria. Aorta and inferior vena cava are normal in caliber. Abdominal wall: No ventral hernias. Pelvis: No free pelvic fluid. No inguinal hernias or adenopathy. Bones: No suspicious bony lesions. No vertebral body compression fractures. IMPRESSION: 1. Enlarged heterogeneous appearance of the left kidney with appearance of multiple soft tissue masses appearing within the renal parenchyma as well as within the exophytic regions. There are also ill-defined soft tissue density is identified superior to the kidney at the confluence of the stomach and spleen as well as the medial aspect of the kidney at the level of the aorta encompassing the renal artery and vein. Overall appearance appears most suggestive of given history of lymphoma involvement. However, lack of IV contrast and prior exams limit evaluation. Superimposed or other etiologies such as infection or inflammation include pyelonephritis or potentially areas of renal infarction secondary to tumor involvement of the renal vasculature cannot be excluded. The findings were discussed with Dr. Amol Bryant on 06/08/16 at 2:20 PM. Dictated by: Lizzie Morin M.D. on 06/08/2016 at 14:13 Approved by: Lizzie Morin M.D. on 06/08/2016 at 14:39 Assessment & Plan 1. Complicated UTI : Continue Zosyn 3.375 mg IV q8H for another 24 hours pending culture. ( So far negative) We may have a negative culture given exposure to antibiotics ( Cipro and cephalosporins) prior to admission 2. Pyelonephritis : Zosyn 3. History of lymphoma. Patient last chemotherapy session was on 05/13/2016. Next session is scheduled for next Saturday06/13/2016 . Her oncologist is Dr Molina The finding of the CT scan shows There are multiple areas of heterogeneous soft tissue attenuation identified within the renal parenchyma as well as exophytic areas within the superior and inferior poles. There is prominent perinephric stranding as well as poorly defined soft tissue masses along the superior aspect of the kidney at the confluence of the spleen and stomach. There is soft tissue density identified medial to the left kidney and direct approximation to the aorta obscured evaluation of the renal artery and renal vein at this level These lesions are not new per daughter at bedside who keep record of her medical issues . She will follow up with her primary oncologist on discharge . 4. Hypokalemia : Replace electrolytes when necessary 5. Hypomagnesemia : Improved 6. Immunocompromised : Secondary to chemotherapy. She is not no troponin at this time 8. Pancytopenia: Secondary to chemotherapy. S/p 2 units PRBC on 06/09/2015 due to hb of 7.2. Hb 9 now . Clinically improved Continue Zosyn for complicated UTI and pyelonephritis. Discharge anticipated within 24-48 hours . Patient will follow up with her primary oncologist on discharge for chemotherapy VTE Prophylaxis: SCDs Resuscitation Status: CPR: Attempt Resuscitation Time spent 25 minutes Frank Ledezma MD Jun 10, 2016 10:50
[2016-06-10] MEDS: 0.9% Sodium Chloride 250 ML IV SCH (12:50)
[2016-06-10 16:30] VITALS: BP 144/87; PULSE 64; RESP 16; O2SAT 97
--- NOTE | 2016-06-10 17:00 | NUR ---
Diarrhea Pt having frequent loose stools this shift and has now reported a diarrhea episode. Hospitalist melissa. Awaiting response. Addendum: 06/10/16 at 1852 by URSZULA BALDERAS RN Received call from hospitalist, order to collect c diff stool sample. Pt placed on enteric isolation precautions while c diff pending.
--- NOTE | 2016-06-10 18:52 | NUR ---
Increased edema Pt total input for shift 1778, urinary output 500. Pt had multiple bowel movements. Increased lower leg/ankle edema. Pt reports hands feeling swollen. Hospitalist notified. Instructed to have pt get up and walk. Patient informed of plan.
[2016-06-10 20:25] VITALS: BP 147/74; PULSE 58; RESP 17; O2SAT 96
--- NOTE | 2016-06-10 21:45 | NUR ---
Stool Sample Sample obtained /sent for c-diff r/o.
[2016-06-11] MEDS: Piperacillin-Tazo 3.375 Gm Inj 3.375 GM in Dextrose 5% Minibag Plus 50 ML IV SCH ×3 (00:15→17:31)
[2016-06-11 00:28] VITALS: BP 154/79; PULSE 55; RESP 18; O2SAT 95
[2016-06-11 04:38] VITALS: BP 146/79; PULSE 67; RESP 18; O2SAT 96
[2016-06-11 08:06] VITALS: BP 169/82; PULSE 66; RESP 16; O2SAT 98
[2016-06-11] MEDS: Ondansetron 2 mg/mL 2 mL Inj IVPUSH PRN ×3 (08:12→22:26)
[2016-06-11 10:14] LABS: BASOPHILS % (AUTO) 0.3 % (0-3)
[2016-06-11 10:18] LABS: EOSINOPHILS % (AUTO) 3.9 % (0-5); MONOCYTES % (AUTO) 9.5 % (4-12); Mean Corpuscular Hemoglobin 28.7 pg (27.0-35.0); Mean Corpuscular Volume 89.9 fL (81-100); NEUTROPHILS % (AUTO) 75.2 % (40-74); Platelet Count 40 bil/L (150-400)
[2016-06-11 10:39] LABS: Magnesium 1.3 mg/dL (1.6-2.6)
[2016-06-11] MEDS ORDERED: Magnesium Sulf 4 Gm/100 mL H2O 4 GM in IV Premix 1 EACH IV ONE (12:40)
[2016-06-11 14:23] VITALS: BP 146/78; PULSE 76; RESP 18; O2SAT 98
[2016-06-11] MEDS ORDERED: Sodium Chloride LOK Flush 10 mL Syringe IVFLUSH PRN ×2 (14:50)
[2016-06-11] MEDS ORDERED: HepLOK Flush 100 unit/mL 5 mL Inj IVFLUSH PRN (14:50)
--- NOTE | 2016-06-11 14:58 | NUR ---
Precaution Patient tested negative for C-diff, isolation precaution discontinued. Specimen for Occult blood was also negative. Patient still experiencing some nausea, Zofran IV given Q 6H with relief. Appetite improving per patient report. Ambulating well in the room. Will continue to monitor.
--- NOTE | 2016-06-11 16:18 | NUR ---
Social Work-readiness for discharge: Data:EMR reviewed. Pt is on day 3 of hospitalization for pyelonephritis per H&P. Pt is not medically stable, but anticipate in the next day or two. Pt resides at home with her daughter and granddaughter. SW checked in with pt, continues to decline HH services. Per RN notes, pt has been up independent in her room. No anticipated discharge needs. SW will continue to follow if needs arise. Assessment:Pt who is independent at baseline. Plan:Pt to discharge home when medically stable via POV. No anticipated discharge needs. SW will continue to follow if needs arise. LYNN Do
--- NOTE | 2016-06-11 16:30 | PCM.PNMED ---
Subjective Date of Service Jun 11, 2016 Subjective Antoinette Jolley is a 70-year-old female with a past medical history significant for lymphoma on chemotherapy who presented to [facility] emergency department with rigors, chills, and nausea who was admitted for complicated UTI and pyelonephritis. Hospital day #4. Overnight: There were no acute events. The patient is resting in bed comfortably and in no acute distress. She denies headache, shortness of breath, chest pain, abdominal pain, nausea, vomiting, fever, chills, dysuria or constipation. She endorses several episodes of diarrhea which she feels is improving, as well as, intermittent fevers and the afternoon. She also complains of one episode of melena and hematuria. She is voiding and eliminating without difficulty. She is up ambulating without assistance. . Exam Vital Signs Vital Sign - Last Date Time Temp Pulse Resp B/P Pulse Ox O2 Delivery O2 Flow Rate FiO2 06/11/16 14:23 36.4 76 18 146/78 98 Room Air Intake and Output 06/10/16 06/10/16 06/11/16 Cumulative From/Thru 15:00 23:00 07:00 06/08/16 11:25 - 06/11/16 06:30 Intake Total 1778 ml 770 ml 9335 ml Output Total 500 ml 1850 ml 5100 ml Balance 1278 ml -1080 ml 4235 ml Intake Oral 1140 ml 600 ml 2990 ml IV Total 638 ml 170 ml 5762 ml Packed Cells 583 ml Output Urine Total 500 ml 1850 ml 4750 ml Urine/Stool Mix 350 ml # Voids 1 8 # Bowel Movements 4 3 9 Exam General: Older female lying in bed acute distress, well-developed, well- nourished, appropriately interactive. HEENT: Normocephalic, atraumatic. External ears without defect. Pupils equal, round, and reactive to light. Anicteric sclerae, moist conjunctivae, and no lid lag. Oropharynx free of erythema and cobble stoning with moist mucosa. Neck: Supple with full range of motion. No jugular venous distension. No bruits. No lymphadenopathy or thyromegaly. Right subclavian Port-A-Cath c/d/i. Cardiovascular: Regular rate and rhythm with no murmurs, rubs, or gallops appreciated. Pulmonary: Clear to auscultation bilaterally with no crackles, wheezes, or rhonchi. Normal respiratory effort with no use of accessory muscles. Abdomen: Soft, mild tenderness to palpation diffusely throughout her abdomen, nondistended, bowel sounds present. No hepatosplenomegaly or masses appreciated. Left flank and CVA tenderness on the left. Extremities: No clubbing, cyanosis, or edema. Skin: Normal temperature, turgor, and texture; no rash, ulcers, or subcutaneous nodules appreciated. Neurological: Cranial nerves grossly intact. Normal muscle strength, tone, and bulk. Reflexes, coordination, and sensory function within normal limits. No known gait impairment. Psychiatric: Normal mood and affect. Alert and oriented to person, place, and time. . IVs and Medications Medications Reviewed: Medications were reviewed in detail Lab and Diagnostics Item Value Date Time Calcium Level 9.1 mg/dL 06/11/16 0935 Magnesium Level 1.3 mg/dL L 06/11/16 0935 Total Bilirubin 0.3 mg/dL 06/11/16 0935 Aspartate Amino Transf (AST/SGOT) 20 U/L 06/11/16 0935 Alanine Aminotransferase (ALT/SGPT) 10 U/L 06/11/16 0935 Alkaline Phosphatase 77 U/L 06/11/16 0935 Total Protein 4.8 g/dL L 06/11/16 0935 Albumin 2.9 g/dL L 06/11/16 0935 Procalcitonin 0.31 ng/mL H 06/09/16 0701 Result Diagram: 06/11/16 0935 06/11/16 0935 Microbiology Blood culture 4 show no growth after 2 days. Urine culture shows no growth. C. difficile DNA amplification negative. . X-Rays, CTs and MRIs CT KUB IMPRESSION: 1. Enlarged heterogeneous appearance of the left kidney with appearance of multiple soft tissue masses appearing within the renal parenchyma as well as within the exophytic regions. There are also ill-defined soft tissue density is identified superior to the kidney at the confluence of the stomach and spleen as well as the medial aspect of the kidney at the level of the aorta encompassing the renal artery and vein. Overall appearance appears most suggestive of given history of lymphoma involvement. However, lack of IV contrast and prior exams limit evaluation. Superimposed or other etiologies such as infection or inflammation include pyelonephritis or potentially areas of renal infarction secondary to tumor involvement of the renal vasculature cannot be excluded. The findings were discussed with Dr. Amol Bryant on 06/08/16 at 2:20 PM. Dictated by: Lizzie Morin M.D. on 06/08/2016 at 14:13 Approved by: Lizzie Morin M.D. on 06/08/2016 at 14:39 . Assessment & Plan Antoinette Jolley is a 70-year-old female with a past medical history significant for lymphoma on chemotherapy who presented to [facility] emergency department with rigors, chills, and nausea who was admitted for complicated UTI and pyelonephritis. Hospital day #4. 1. Acute complicated urinary tract infection, present on admission. Resolving. - Continue Zosyn 3.375 mg IV and likely will discontinue tomorrow as this would complete a 5 day course. - Urine culture negative, as above. However, given exposure to antibiotics ( ciprofloxacin and cefotaxime) prior to admission likely a false negative. 2. Acute pyelonephritis, present on admission. Resolving. - Continue antibiotics as above in problem #1. - Patient has history of nephrolithiasis as seen on CT KUB and will reassess with renal ultrasound as she has significant CVA tenderness and now reoccurring hematuria to rule out obstruction. 3. Possible melanotic stool, not present on admission. Active. - Patient reports several episodes of diarrhea. Last bowel movement was black in color. The patient has mild abdominal tenderness likely from lymphoma. - Hemoglobin stable. Continue to monitor hemoglobin and hematocrit daily. - Ordered stool guaiac, pending. - C. difficile PCR negative as above. 4. Acute hypomagnesemia, present on admission. Active. - Ordered magnesium sulfate 4 g IV 1. - Monitor magnesium daily. 5. Acute hypokalemia, present on admission. Resolved. - Repleted as necessary. Chronic problems: Immunocompromised secondary to chemotherapy, present on admission. Stable. - The patient discussed final round of chemotherapy with her oncologist Dr. Altman at [facility] who wishes to discontinue present chemotherapy and will readdress this as an outpatient in the future. Pancytopenia, secondary to chemotherapy. Stable. - Received 2 units PRBC on 06/09/2015 due to hemoglobin of 7.2. Hemoglobin stable. - Continue to monitor daily. GERD, chronic. - Continue Protonix 20 mg daily. Hypertension, chronic. - Continue losartan 50 mg daily. Hyperlipidemia, chronic. - Restart lovastatin 20 mg daily at bedtime at time of discharge. PRN antiemetics: Zofran and promethazine. PRN bowel regimen: Senna and MiraLAX. PRN analgesics: Tylenol. Disposition: Discharge anticipated within 24-48 hours. Patient will follow up with her primary oncologist on discharge for chemotherapy. . VTE Prophylaxis: SCDs Resuscitation Status: CPR: Attempt Resuscitation Attending Statement The patient was seen and examined together with Dr. Alvarez on 06-11-16 and I agree with the history, exam and plan as outlined in the note above. Patient has prn IV morphine ordered for sever pain. Magdalena Alvarez DO Jun 11, 2016 16:30 Karley Reeves MD Jun 12, 2016 16:13
--- NOTE | 2016-06-11 18:55 | DRSVH ---
PROCEDURE: US RENAL SONOGRAM INDICATIONS: pyelonephritis TECHNIQUE: Real-time scanning was performed of the kidneys and bladder, with image documentation. COMPARISON: [facility], CT, CT KUB, 06/08/2016, 13:32. FINDINGS: Kidneys: Kidneys are normal in size. Right kidney measures 10.9 cm long; left kidney measures 10.7 cm long. Right renal cortical thickness is 1.4 cm; left renal cortical thickness is 1.5 cm. right re nal cortical echotexture is normal but that on the left is mildly heterogeneous and echogenic. No hy dronephrosis on the left or nephrolithiasis on the right. There is slight hydronephrosis at the righ t renal collecting system centrally, and a small calculus measuring 5 x 7 x 8 mm it is nonobstructing at the collecting system of the left kidney. No suspicious solid mass lesions within the kidneys th emselves, but the left upper quadrant shows a heterogeneous mass contiguous with and superior to the left kidney with increased vascularity, measuring at least 3.5 x 4.2 x 3.9 cm. The boundaries of thi s structure, however, are very poorly seen.. Bladder: Pre-void bladder volume is 195 mL. Post-void residual is 0 mL. Pre-void images demonstrat e no intraluminal masses or stones. On pre-void images, neither ureteral jets are noted with color D oppler interrogation. (Of note, ureteral jets may not be detectable in up to 25% of cases due to ins ufficient differences in specific gravity between ureteral and bladder urine). Miscellaneous: No free pelvic fluid. IMPRESSION: The CT scan performed 3 days ago, without oral or intravenous contrast, identifies a larg e mass lesion in the left upper quadrant that is much better visualized by CT scanning than by the [facility] ultrasound. Slight hydronephrosis on the right is present, a small calculus could be seen invo lving the left renal collecting system. 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 Metastatic renal cell carcinoma is considered much less likely given the appearance by this ultrasound today. If clinically desired MR scanning in reference to prior comparison CT scanning if it exists would be helpful in further establishing chronicity of these abnormalities and guide changer time. Dictated by: Emmanuel Henriquez M.D. on 06/11/2016 at 18:50 Approved by: Emmanuel Henriquez M.D. on 06/11/2016 at 18:55
[2016-06-11] MEDS: 0.9% Sodium Chloride 250 ML IV SCH (19:29)
[2016-06-11 19:59] VITALS: BP 158/77; PULSE 66; RESP 17; O2SAT 97
[2016-06-12] MEDS: Piperacillin-Tazo 3.375 Gm Inj 3.375 GM in Dextrose 5% Minibag Plus 50 ML IV SCH ×3 (00:54→17:00)
[2016-06-12] MEDS: Ondansetron 2 mg/mL 2 mL Inj IVPUSH PRN ×2 (02:06→10:11)
[2016-06-12] MEDS ORDERED: Ondansetron 2 mg/mL 2 mL Inj IVPUSH SCH (02:15)
[2016-06-12 03:12] VITALS: BP 149/72; PULSE 79; RESP 17; O2SAT 98
[2016-06-12] MEDS: MetoCLOpramide 5 mg/mL 2 mL Inj IVPUSH PRN ×2 (06:06→14:30)
[2016-06-12 06:10] LABS: Magnesium 1.9 mg/dL (1.6-2.6)
[2016-06-12 06:12] LABS: BASOPHILS % (AUTO) 0.3 % (0-3)
[2016-06-12 06:18] VITALS: BP_SYST 157; BP_SYST 160; BP_DIAS 57; BP_DIAS 68; PULSE 78; RESP 17; O2SAT 96
[2016-06-12 06:20] LABS: EOSINOPHILS % (AUTO) 4.4 % (0-5); MONOCYTES % (AUTO) 13.4 % (4-12); Mean Corpuscular Hemoglobin 28.7 pg (27.0-35.0); Mean Corpuscular Volume 88.7 fL (81-100); NEUTROPHILS % (AUTO) 73.7 % (40-74); Platelet Count 42 bil/L (150-400)
--- NOTE | 2016-06-12 06:41 | NUR ---
Nausea/Vomiting Pt had multiple episode of nausea and vomiting throughout night, pt had additional 4mg of IV Zofran at 0204, effective only for 2 1/2hrs, spoke with Dr. Duran, noted order for reglan IV, given at 0615 rechecked at 0642, pt reports reglan helped at this time.
[2016-06-12] MEDS ORDERED: POTASSIUM CHLORIDE IV ONE (10:15)
[2016-06-12] MEDS ORDERED: DEXTROSE 5% IV ONE ×2 (10:15→18:11)
[2016-06-12] MEDS ORDERED: Potassium Chloride 20 mEq SR Tablet PO ONE (10:35)
[2016-06-12 12:13] VITALS: BP 178/90; PULSE 67; RESP 18; O2SAT 95
[2016-06-12] MEDS: Promethazine 25 mg/mL Inj IM PRN ×2 (12:24→17:52)
[2016-06-12] MEDS: Sucralfate 100 mg/mL 10 mL Suspension PO SCH ×2 (12:33→17:52)
--- NOTE | 2016-06-12 13:10 | NUR ---
Nausea/Vomiting Pt continues to have nausea and vomiting. Given IV zofran with little relief in symptoms. Doctor notified. Given order to give IV promethazine which was given in addition to IV valium. Unable to give PO potassium supplement at this time due to sedtaion (and pt was unable to tolerate it prior to IV medications being given due to nausea). Will continue to monitor. Addendum: 06/12/16 at 1520 by ALISIA ARITA RN Pt continued to be nauseous and vomited after phenergan given. IV reglan given at 1445.
[2016-06-12] MEDS: 0.9% Sodium Chloride 250 ML IV SCH (14:48)
[2016-06-12 17:05] VITALS: BP 161/71; PULSE 62; RESP 16; O2SAT 96
[2016-06-12] MEDS ORDERED: KCl 40 mEq/D5W 500 mL 40 MEQ in IV Premix 1 EACH IV ONE (17:15)
--- NOTE | 2016-06-12 17:18 | PCM.PNMED ---
Subjective Date of Service Jun 12, 2016 Subjective Pt seen and examined. Patient has been vomiting continuously all day and has had persistent nausea. Patient was unable to keep any food down despite multiple anti emetics. Patient was reassured that this was most likely secondary to antibioitics, and that she would have only one more day. Exam Vital Signs Vital Sign - Last Date Time Temp Pulse Resp B/P Pulse Ox O2 Delivery O2 Flow Rate FiO2 06/12/16 17:05 37.1 62 16 161/71 96 Room Air Intake and Output 06/11/16 06/11/16 06/12/16 Cumulative From/Thru 15:00 23:00 07:00 06/08/16 11:25 - 06/12/16 06:17 Intake Total 1904 ml 500 ml 78456 ml Output Total 1850 ml 950 ml 7900 ml Balance 54 ml -450 ml 3839 ml Intake Oral 1700 ml 350 ml 5040 ml IV Total 204 ml 150 ml 6116 ml Packed Cells 583 ml Output Urine Total 1850 ml 950 ml 7550 ml Urine/Stool Mix 350 ml # Voids 8 # Bowel Movements 1 10 Exam General: Older female lying in bed acute distress, well-developed, well- nourished, appropriately interactive. HEENT: Normocephalic, atraumatic. External ears without defect. Pupils equal, round, and reactive to light. Anicteric sclerae, moist conjunctivae, and no lid lag. Oropharynx free of erythema and cobble stoning with moist mucosa. Neck: Supple with full range of motion. No jugular venous distension. No bruits. No lymphadenopathy or thyromegaly. Right subclavian Port-A-Cath c/d/i. Cardiovascular: Regular rate and rhythm with no murmurs, rubs, or gallops appreciated. Pulmonary: Clear to auscultation bilaterally with no crackles, wheezes, or rhonchi. Normal respiratory effort with no use of accessory muscles. Abdomen: Soft, mild tenderness to palpation diffusely throughout her abdomen, nondistended, bowel sounds present. No hepatosplenomegaly or masses appreciated. Left flank and CVA tenderness on the left. Extremities: No clubbing, cyanosis, or edema. Skin: Normal temperature, turgor, and texture; no rash, ulcers, or subcutaneous nodules appreciated. Neurological: Cranial nerves grossly intact. Normal muscle strength, tone, and bulk. Reflexes, coordination, and sensory function within normal limits. No known gait impairment. Psychiatric: Normal mood and affect. Alert and oriented to person, place, and time. Lab and Diagnostics Result Diagram: 06/12/1654206/12/16542 Microbiology Blood culture 4 show no growth after 2 days. Urine culture shows no growth. C. difficile DNA amplification negative. . X-Rays, CTs and MRIs CT KUB IMPRESSION: 1. Enlarged heterogeneous appearance of the left kidney with appearance of multiple soft tissue masses appearing within the renal parenchyma as well as within the exophytic regions. There are also ill-defined soft tissue density is identified superior to the kidney at the confluence of the stomach and spleen as well as the medial aspect of the kidney at the level of the aorta encompassing the renal artery and vein. Overall appearance appears most suggestive of given history of lymphoma involvement. However, lack of IV contrast and prior exams limit evaluation. Superimposed or other etiologies such as infection or inflammation include pyelonephritis or potentially areas of renal infarction secondary to tumor involvement of the renal vasculature cannot be excluded. The findings were discussed with Dr. Amol Bryant on 06/08/16 at 2:20 PM. Dictated by: Lizzie Morin M.D. on 06/08/2016 at 14:13 Approved by: Lizzie Morin M.D. on 06/08/2016 at 14:39 . Assessment & Plan Antoinette Jolley is a 70-year-old female with a past medical history significant for lymphoma on chemotherapy who presented to [facility] emergency department with rigors, chills, and nausea who was admitted for complicated UTI and pyelonephritis. Hospital day #4. 1. Acute complicated urinary tract infection, present on admission. Resolving. - Continue Zosyn 3.375 mg IV and likely will discontinue tomorrow (06/13) as this would complete a 5 day course. - Urine culture negative, as above. However, given exposure to antibiotics ( ciprofloxacin and cefotaxime) prior to admission likely a false negative. 2. Acute pyelonephritis, present on admission. Resolving. - Continue antibiotics as above in problem #1. - Patient has history of nephrolithiasis as seen on CT KUB and will reassess with renal ultrasound as she has significant CVA tenderness and now reoccurring hematuria to rule out obstruction. 3. Possible melanotic stool, not present on admission. Active. - Patient reports several episodes of diarrhea. Last bowel movement was black in color. The patient has mild abdominal tenderness likely from lymphoma. - Hemoglobin stable. Continue to monitor hemoglobin and hematocrit daily. - Ordered stool guaiac, pending. - C. difficile PCR negative as above. 4. Acute hypomagnesemia, present on admission. Active. - resolved 5. Acute hypokalemia, present on admission. Resolved. - Repleted as necessary. Chronic problems: Immunocompromised secondary to chemotherapy, present on admission. Stable. - The patient discussed final round of chemotherapy with her oncologist Dr. Altman at [facility] who wishes to discontinue present chemotherapy and will readdress this as an outpatient in the future. Pancytopenia, secondary to chemotherapy. Stable. - Received 2 units PRBC on 06/09/2015 due to hemoglobin of 7.2. Hemoglobin stable. - Continue to monitor daily. GERD, chronic. - Continue Protonix 20 mg daily. Hypertension, chronic. - Continue losartan 50 mg daily. Hyperlipidemia, chronic. - Restart lovastatin 20 mg daily at bedtime at time of discharge. PRN antiemetics: Zofran and promethazine. PRN bowel regimen: Senna and MiraLAX. PRN analgesics: Tylenol. Disposition: Discharge anticipated within 24-48 hours. Patient will follow up with her primary oncologist on discharge for chemotherapy. . VTE Prophylaxis: SCDs Resuscitation Status: CPR: Attempt Resuscitation Andrea Castro MD Jun 12, 2016 17:16
[2016-06-12] MEDS ORDERED: D5W 40 MEQ IV ONE (18:11)
[2016-06-12] MEDS ORDERED: KCL IV ONE (18:11)
[2016-06-12 20:50] VITALS: BP 157/79; PULSE 64; RESP 17; O2SAT 96
[2016-06-13] MEDS: Piperacillin-Tazo 3.375 Gm Inj 3.375 GM in Dextrose 5% Minibag Plus 50 ML IV SCH ×2 (00:24→09:37)
[2016-06-13 01:41] VITALS: BP 134/69; PULSE 66; RESP 16; O2SAT 95
[2016-06-13] MEDS: 0.9% Sodium Chloride 250 ML IV SCH (04:55)
--- NOTE | 2016-06-13 05:53 | NUR ---
Shift Note Assumed pt care at 1900, pt with nausea at beginning of shift, eventually resolved per pt report, pt had no further episode of nausea/ vomiting throughout night.
[2016-06-13 06:04] VITALS: BP 130/65; PULSE 63; RESP 16; O2SAT 95
[2016-06-13 07:12] LABS: BASOPHILS % (AUTO) 0.2 % (0-3); EOSINOPHILS % (AUTO) 1.2 % (0-5); MONOCYTES % (AUTO) 12.5 % (4-12); Mean Corpuscular Hemoglobin 28.6 pg (27.0-35.0); Mean Corpuscular Volume 88.6 fL (81-100); Platelet Count 44 bil/L (150-400)
[2016-06-13] MEDS: Sucralfate 100 mg/mL 10 mL Suspension PO SCH ×3 (09:35→17:30)
[2016-06-13 11:00] VITALS: BP 152/70; PULSE 68; RESP 17; O2SAT 99
--- NOTE | 2016-06-13 11:53 | PCM.PNMED ---
Subjective Date of Service Jun 13, 2016 Subjective Patient seen and examined in the morning. Patient is doing markedly better in comparison to yesterday. Patient has not had any nausea or vomiting overnight, and patients hematuria has cleared up. Patient is otherwise in good spirits. Exam Vital Signs Vital Sign - Last Date Time Temp Pulse Resp B/P Pulse Ox O2 Delivery O2 Flow Rate FiO2 06/13/16 06:04 37.7 63 16 130/65 95 Room Air Intake and Output 06/12/16 06/12/16 06/13/16 Cumulative From/Thru 15:00 23:00 07:00 06/08/16 11:25 - 06/13/16 06:04 Intake Total 587 ml 235 ml 32625 ml Output Total 1000 ml 1000 ml 9900 ml Balance -413 ml -765 ml 2661 ml Intake Oral 480 ml 235 ml 5755 ml IV Total 107 ml 6223 ml Packed Cells 583 ml Output Urine Total 750 ml 1000 ml 9300 ml Urine/Stool Mix 350 ml Emesis 250 ml 250 ml # Voids 8 # Bowel Movements 10 Exam General: Older female lying in bed acute distress, well-developed, well- nourished, appropriately interactive. HEENT: Normocephalic, atraumatic. External ears without defect. Pupils equal, round, and reactive to light. Anicteric sclerae, moist conjunctivae, and no lid lag. Neck: Supple with full range of motion. No jugular venous distension. No bruits. No lymphadenopathy or thyromegaly. Right subclavian Port-A-Cath c/d/i. Cardiovascular: Regular rate and rhythm with no murmurs, rubs, or gallops appreciated. Pulmonary: Clear to auscultation bilaterally with no crackles, wheezes, or rhonchi. Normal respiratory effort with no use of accessory muscles. Abdomen: Soft, mild tenderness to palpation diffusely throughout her abdomen, nondistended, bowel sounds present. No hepatosplenomegaly or masses appreciated. Left flank and CVA tenderness on the left. Extremities: No clubbing, cyanosis, or edema. Skin: Normal temperature, turgor, and texture; no rash, ulcers, or subcutaneous nodules appreciated. Neurological: Cranial nerves grossly intact. Normal muscle strength, tone, and bulk. Reflexes, coordination, and sensory function within normal limits. No known gait impairment. Psychiatric: Normal mood and affect. Alert and oriented to person, place, and time. IVs and Medications Medications Reviewed: Medications were reviewed in detail Lab and Diagnostics Result Diagram: 06/13/1652406/13/16524 Microbiology Blood culture 4 show no growth after 2 days. Urine culture shows no growth. C. difficile DNA amplification negative. . X-Rays, CTs and MRIs CT KUB IMPRESSION: 1. Enlarged heterogeneous appearance of the left kidney with appearance of multiple soft tissue masses appearing within the renal parenchyma as well as within the exophytic regions. There are also ill-defined soft tissue density is identified superior to the kidney at the confluence of the stomach and spleen as well as the medial aspect of the kidney at the level of the aorta encompassing the renal artery and vein. Overall appearance appears most suggestive of given history of lymphoma involvement. However, lack of IV contrast and prior exams limit evaluation. Superimposed or other etiologies such as infection or inflammation include pyelonephritis or potentially areas of renal infarction secondary to tumor involvement of the renal vasculature cannot be excluded. The findings were discussed with Dr. Amol Bryant on 06/08/16 at 2:20 PM. Dictated by: Lizzie Morin M.D. on 06/08/2016 at 14:13 Approved by: Lizzie Morin M.D. on 06/08/2016 at 14:39 . Assessment & Plan Antoinette Jolley is a 70-year-old female with a past medical history significant for lymphoma on chemotherapy who presented to [facility] emergency department with rigors, chills, and nausea who was admitted for complicated UTI and pyelonephritis. Hospital day #4. 1. Acute complicated urinary tract infection, present on admission. Resolving. - Continue Zosyn 3.375 mg IV and l will discontinue today (06/13) as this would complete a 5 day course. - Urine culture negative, as above. 2. Acute pyelonephritis, present on admission. Resolving. - Continue antibiotics as above in problem #1. - No symptoms that would suggest stone formation 3. Possible melanotic stool, not present on admission. Active. - Patient reports several episodes of diarrhea. Last bowel movement was black in color. The patient has mild abdominal tenderness likely from lymphoma. - Hemoglobin stable. Continue to monitor hemoglobin and hematocrit daily. - Ordered stool guaiac, pending. - C. difficile PCR negative as above. 4. Hematuria - Patient has a history of hematuria associated with UTIs - most likely secondary to friable mucosa - if persistent, urology must be consulted - last incidence was last night, two clear voids since then 5. Acute hypokalemia, present on admission. Resolved. - Repleted as necessary. Chronic problems: Immunocompromised secondary to chemotherapy, present on admission. Stable. - The patient discussed final round of chemotherapy with her oncologist Dr. Altman at [facility] who wishes to discontinue present chemotherapy and will readdress this as an outpatient in the future. Pancytopenia, secondary to chemotherapy. Stable. - Received 2 units PRBC on 06/09/2015 due to hemoglobin of 7.2. Hemoglobin stable. - Continue to monitor daily. GERD, chronic. - Continue Protonix 20 mg daily. Hypertension, chronic. - Continue losartan 50 mg daily. Hyperlipidemia, chronic. - Restart lovastatin 20 mg daily at bedtime at time of discharge. PRN antiemetics: Zofran and promethazine. PRN bowel regimen: Senna and MiraLAX. PRN analgesics: Tylenol. Disposition: Discharge anticipated within 24-48 hours. Patient will follow up with her primary oncologist on discharge for chemotherapy. . VTE Prophylaxis: SCDs Resuscitation Status: CPR: Attempt Resuscitation Andrea Castro MD Jun 13, 2016 11:50
--- NOTE | 2016-06-13 13:27 | NUR ---
Social Work Readiness for Discharge: SW met with patient at bedside to discuss discharge plan. Patient states plan as home with daughter who to provide support and care in addition to granddaughters assistance at home. Patient states home is handicapped assessable and patient denied any discharge needs at this time. Patient active with chemo treatments at [place] and will continue to follow. Potential discharge tomorrow pending clinical course. PLAN: Home with daughter and granddaughter support. Transport via POV at discharge. No anticipated discharge needs at this time. SW will continue to follow. Alesia BAILEY
[2016-06-13] MEDS ORDERED: Piperacillin-Tazo 3.375 Gm Inj 3.375 GM in Dextrose 5% Minibag Plus 50 ML IV SCH (16:30)
[2016-06-13 18:11] VITALS: BP 156/78; PULSE 86; RESP 16; O2SAT 99
[2016-06-13] MEDS: Ondansetron 2 mg/mL 2 mL Inj IVPUSH PRN (18:32)
--- NOTE | 2016-06-13 18:42 | NUR ---
Nausea/Elimination Pt went through most of the shift without any nausea or vomiting. While eating her dinner she became nauseous and vomited x1. Given zofran x1. Will continue to monitor. No observable hematuria this shift. Continues to have small, frequent loose bowel movements.
[2016-06-13 20:19] VITALS: BP 137/78; PULSE 62; RESP 20; O2SAT 95
--- NOTE | 2016-06-13 22:37 | NUR ---
Blood sugar Pt refuses her blood sugar to be taken. She states that she has "little appetite" and is "not taking her metformin" Addendum: 06/13/16 at 2239 by BRENDA COREY RN Her blood sugars in the AM labs have been consistently under 200. Will cont to monitor
[2016-06-13 23:13] VITALS: BP 147/69; PULSE 60; RESP 20; O2SAT 95
[2016-06-14 02:36] VITALS: BP 156/87; PULSE 68; RESP 16; O2SAT 98
--- NOTE | 2016-06-14 03:22 | NUR ---
Urin Pt had 3 voids of clear yellow urin in the night At 0300 she voided dark red urine with visible clots. Given Tylenol PO for generalized pain. Will cont to monitor
[2016-06-14] MEDS ORDERED: Piperacillin-Tazo 3.375 Gm Inj 3.375 GM in Dextrose 5% Minibag Plus 50 ML IV SCH (04:00)
[2016-06-14] MEDS: 0.9% Sodium Chloride 250 ML IV SCH (04:53)
[2016-06-14 05:51] VITALS: BP 153/74; PULSE 58; RESP 16; O2SAT 96
--- NOTE | 2016-06-14 06:37 | NUR ---
Hematuria Pt had a 2nd void of hematuria with visible clots in the urine
[2016-06-14 08:05] VITALS: BP 157/84; PULSE 65; RESP 18; O2SAT 97
[2016-06-14] MEDS: Sucralfate 100 mg/mL 10 mL Suspension PO SCH ×3 (08:22→17:26)
[2016-06-14] MEDS: Ondansetron 2 mg/mL 2 mL Inj IVPUSH PRN (08:22)
--- NOTE | 2016-06-14 08:27 | NUR ---
Held Metformin Patient stated she is not taking Metformin at this time due to not taking in much food, also stated she does not want her blood sugar taken, stated she only takes it once per day anyway and this can be resulted in morning labs.
[2016-06-14 08:52] LABS: BASOPHILS % (AUTO) 0.4 % (0-3); EOSINOPHILS % (AUTO) 3.9 % (0-5); MONOCYTES % (AUTO) 12.4 % (4-12); NEUTROPHILS % (AUTO) 73.5 % (40-74); Platelet Count 42 bil/L (150-400)
--- NOTE | 2016-06-14 10:30 | NUR ---
Morning Rounds Staffed patient's case with Dr. Kearney and case management. Made MD aware that patient is refusing her Metformin and does not want her blood sugar checked, as she stated the morning labs will have blood sugar results. Also made MD aware that the patient was to have her Zosyn stopped, but it is still scheduled and patient is supposed to have a Urology consult if hematuria persisted overnight, which was the case. MD stated she would assess patient and address these issues, no plan for discharge at this time.
--- NOTE | 2016-06-14 12:43 | PCM.PNMED ---
Subjective Date of Service Jun 14, 2016 Subjective Patient is not feeling as well today as she did yesterday afternoon. Daughter is at bedside. Continues to have nausea and left-sided abdominal pain. She has had some gross hematuria today also. Denies any chest pain shortness of breath. Denies any fevers or chills. Exam Vital Signs Vital Sign - Last Date Time Temp Pulse Resp B/P Pulse Ox O2 Delivery O2 Flow Rate FiO2 06/14/16 08:05 37.0 65 18 157/84 97 Room Air Intake and Output 06/13/16 06/13/16 06/14/16 Cumulative From/Thru 15:00 23:00 07:00 06/08/16 11:25 - 06/14/16 05:01 Intake Total 1150 ml 530 ml 00201 ml Output Total 1000 ml 1300 ml 13914 ml Balance 150 ml -770 ml 2041 ml Intake Oral 1150 ml 6905 ml IV Total 530 ml 6753 ml Packed Cells 583 ml Output Urine Total 1000 ml 1300 ml 82065 ml Urine/Stool Mix 350 ml Emesis 250 ml # Voids 8 # Bowel Movements 3 13 Exam Constitutional: Woman in mild pain distress and ill-appearing Head: Alopecia Chest: Clear to auscultation Cor: Regular rate and rhythm S1-S2 without murmur Abdomen: Soft , bowel sounds present, tender to palpation in the left upper and left mid area no rebound no guarding noted. Extremities: No pedal edema noted Neuro alert and oriented 3 Psych: Mood and affect appropriate Skin: No rashes noted but some small tiny ecchymoses noted on her left upper arm Lab and Diagnostics Laboratory Tests 72 Hours Test 06/12/16 05:43 06/13/16 05:25 06/14/16 08:35 White Blood Count 3.7th/mm3 (3.8-10.1) 5.0th/mm3 (3.8-10.1) 4.9th/mm3 (3.8-10.1) Red Blood Count 3.35mil/mm3 (3.90-5.20) 3.25mil/mm3 (3.90-5.20) 3.31mil/mm3 (3.90-5.20) Hemoglobin 9.6g/dL (12.0-15.6) 9.3g/dL (12.0-15.6) 9.6g/dL (12.0-15.6) Hematocrit 29.7% (35.0-46.0) 28.8% (35.0-46.0) 29.8% (35.0-46.0) Mean Corpuscular Volume 88.7fL (81-100) 88.6fL (81-100) 90.0fL (81-100) Mean Corpuscular Hemoglobin 28.7pg (27.0-35.0) 28.6pg (27.0-35.0) 29.0pg (27.0-35.0) Mean Corpuscular Hemoglobin Concent 32.3% (32.0-37.0) 32.3% (32.0-37.0) 32.2% (32.0-37.0) Red Cell Distribution Width 15.1% (12.3-15.4) 15.0% (12.3-15.4) 15.0% (12.3-15.4) Platelet Count 42bil/L (150-400) 44bil/L (150-400) 42bil/L (150-400) Neutrophils (%) (Auto) 73.7% (40-74) 73.0% (40-74) 73.5% (40-74) Lymphocytes (%) (Auto) 8.2% (14-46) 12.9% (14-46) 9.6% (14-46) Monocytes (%) (Auto) 13.4% (4-12) 12.5% (4-12) 12.4% (4-12) Eosinophils (%) (Auto) 4.4% (0-5) 1.2% (0-5) 3.9% (0-5) Basophils (%) (Auto) 0.3% (0-3) 0.2% (0-3) 0.4% (0-3) Sodium Level 137mEq/L (134-144) 137mEq/L (134-144) 135mEq/L (134-144) Potassium Level 3.4mEq/L (3.5-5.2) 3.8mEq/L (3.5-5.2) 3.6mEq/L (3.5-5.2) Chloride Level 100mEq/L (97-108) 99mEq/L (97-108) 98mEq/L (97-108) Carbon Dioxide Level 26mmol/L (18-29) 28mmol/L (18-29) 28mmol/L (18-29) Blood Urea Nitrogen 8mg/dL (8-27) 6mg/dL (8-27) 10mg/dL (8-27) Creatinine 0.86mg/dL (0.57-1.00) 0.96mg/dL (0.57-1.00) 0.95mg/dL (0.57-1.00) Estimat Glomerular Filtration Rate 94mL/min (>59) 83mL/min (>59) 84mL/min (>59) Glucose Level 139mg/dL (60-99) 128mg/dL (60-99) 128mg/dL (60-99) Calcium Level 9.1mg/dL (8.5-10.1) 9.4mg/dL (8.5-10.1) 9.7mg/dL (8.5-10.1) Magnesium Level 1.9mg/dL (1.6-2.6) Total Bilirubin 0.3mg/dL (0.0-1.2) 0.3mg/dL (0.0-1.2) Aspartate Amino Transf (AST/SGOT) 22U/L (0-50) 20U/L (0-50) Alanine Aminotransferase (ALT/SGPT) 8U/L (0-32) 8U/L (0-32) Alkaline Phosphatase 65U/L (25-165) 67U/L (25-165) Total Protein 5.0g/dL (6.4-8.4) 5.1g/dL (6.4-8.4) Albumin 2.9g/dL (3.4-5.0) 3.0g/dL (3.4-5.0) Result Diagram: 06/14/1683406/14/16834 Microbiology Blood culture 4 show no growth after 2 days. Urine culture shows no growth. C. difficile DNA amplification negative. . X-Rays, CTs and MRIs CT KUB IMPRESSION: 1. Enlarged heterogeneous appearance of the left kidney with appearance of multiple soft tissue masses appearing within the renal parenchyma as well as within the exophytic regions. There are also ill-defined soft tissue density is identified superior to the kidney at the confluence of the stomach and spleen as well as the medial aspect of the kidney at the level of the aorta encompassing the renal artery and vein. Overall appearance appears most suggestive of given history of lymphoma involvement. However, lack of IV contrast and prior exams limit evaluation. Superimposed or other etiologies such as infection or inflammation include pyelonephritis or potentially areas of renal infarction secondary to tumor involvement of the renal vasculature cannot be excluded. The findings were discussed with Dr. Amol Bryant on 06/08/16 at 2:20 PM. Dictated by: Lizzie Morin M.D. on 06/08/2016 at 14:13 Approved by: Lizzie Morin M.D. on 06/08/2016 at 14:39 . Assessment & Plan Antoinette Jolley is a 70-year-old female with a past medical history significant for lymphoma on chemotherapy who presented to [facility] emergency department with rigors, chills, and nausea who was admitted for complicated UTI and pyelonephritis. Hospital day #4. 1. Acute complicated urinary tract infection, present on admission. Resolving. - I will DC zosyn today and no oral antibiotics indicated at this time. - Urine culture negative, as above. 2. Acute pyelonephritis, -Urine culture was negative bu did complete a course of iv antibiotics and still with hematuria and abd pain. 3. Possible melanotic stool, not present on admission. Active. - Patient reports several episodes of diarrhea. Last bowel movement was black in color. The patient has mild abdominal tenderness likely from lymphoma. - Hemoglobin stable. Continue to monitor hemoglobin and hematocrit daily. - Ordered stool guaiac, pending. - C. difficile PCR negative as above. -DC metformin 4. Hematuria - Patient has a history of hematuria associated with UTIs - most likely secondary to friable mucosa -Maybe related to mucositis with chemo but will further investigate with iv contrast CT abd/pelvis to further elucidate ct without contrast findings.. 5. Acute hypokalemia, present on admission. Resolved. - Repleted as necessary. Chronic problems: Immunocompromised secondary to chemotherapy, present on admission. Stable. - The patient discussed final round of chemotherapy with her oncologist Dr. Altman at [facility] who wishes to discontinue present chemotherapy and will readdress this as an outpatient in the future. Pancytopenia, secondary to chemotherapy. Stable. - Received 2 units PRBC on 06/09/2015 due to hemoglobin of 7.2. Hemoglobin stable. - Continue to monitor daily. GERD, chronic. - Continue Protonix 20 mg daily. Hypertension, chronic. - Continue losartan 50 mg daily. Hyperlipidemia, chronic. - Restart lovastatin 20 mg daily at bedtime at time of discharge. PRN antiemetics: Zofran and promethazine. PRN bowel regimen: Senna and MiraLAX. PRN analgesics: Tylenol. Disposition: Discharge anticipated within 24-48 hours. Patient will follow up with her primary oncologist on discharge for chemotherapy. . VTE Prophylaxis: SCDs Resuscitation Status: CPR: Attempt Resuscitation Time spent 30 minutes Debbie Kearney MD Jun 14, 2016 12:43
[2016-06-14 13:17] VITALS: BP 164/88; PULSE 64; RESP 16; O2SAT 98
--- NOTE | 2016-06-14 13:20 | NUR ---
Elevated BP/Patient family request Contacted Dr. Kearney with the following cook page: Patient's current BP is 164/88, no PRN meds on file at this time. Patient's daughter is requesting a private discussion with you regarding treatment. Thank you. Erika RIVAS
--- NOTE | 2016-06-14 14:21 | NUR ---
Transfer to CT Patient taken off unit for CT at this time, IV fluids to KVO transported as well.
--- NOTE | 2016-06-14 15:34 | NUR ---
Hemorrhoid Pain Contacted Dr. Kearney with the following cook page: Patient is requesting something for hemorrhoid discomfort, stated she uses Tucks at home and it works well. Please advise. Thank you. Erika RIVAS
[2016-06-14] MEDS ORDERED: Witch Hazel-Glycerin Pads TOPICAL PRN (15:40)
--- NOTE | 2016-06-14 16:01 | DRSVH ---
PROCEDURE: CT ABDOMEN AND PELVIS WITH CONTRAST ([id number]) INDICATIONS: hematuria,lymphoma TECHNIQUE: After the administration of oral and intravenous contrast, 5 mm thick sections acquired from the diap hragms to the symphysis. 5 mm thick coronal and sagittal reformats were performed. For radiation do se reduction, the following was used: automated exposure control, adjustment of mA and/or kV accordi ng to patient size. COMPARISON: CT KUB 06/08/2016; renal ultrasound 06/11/2016 FINDINGS: Image quality: Excellent. ABDOMEN: Lung bases: Small left pleural effusion is present. Mild atelectasis at the base of the lingula and i n the left lower lobe heart size is normal with coronary artery calcifications. Wire or catheter malvin facts in the right atrium. Trace pericardial effusion. Solid organs: Liver appears normal in size with homogeneous decreased attenuation. The spleen is enla rged and lobulated. The gallbladder is markedly contracted. The head and body of pancreas appear norm al however the tail is obscured or infiltrated by a large mesenteric mass that is markedly heterogene ous in degree of enhancement. It appears confluent with the greater curvature of the stomach, with th e medial aspect of the splenic flexure, the anterior aspect of the left renal capsule as well is bulk y retroperitoneal adenopathy. The mass is estimated at 6.7 x 9.4 cm in diameter by 7.8 cm cranial cau joy. At the caudal aspect of the mass is a smaller heterogeneous mass that abuts the anterior margin of the left kidney. This mass measures 3.9 x 4.8 cm in diameter by 4.1 cm cranial caudal. In the left periaortic region at the level of and encapsulating the left renal vascular bundle is a soft tissue mass presumed to represent conglomerate of abnormal lymph nodes, measuring up 4.9 x 5.1 cm diameter b y 3.6 cm craniocaudal. This mass partially wraps around the aorta but does not completely encircle th e aorta. The right kidney appears normal, mild dilatation of the extrarenal pelvis and small cortical cyst in the lower pole. The left kidney is enlarged with markedly diminished and mottled enhancement, likely secondary to tumor obstruction of the renal artery and vein. There is a 3 mm nonobstructing calculus in the anterior lower pole. The left renal capsule is thickened and likely invaded by tumor. There is a small exophytic hyperdense cyst in the posterior left lower pole More caudally, there is no additional retroperitoneal or pelvic adenopathy. The uterus appears to be surgically absent. Ovaries are nonvisualized. Moderate amount of free fluid in the pelvis. Miscellaneous: No ventral hernias. PELVIS: Miscellaneous: Small fat filled left inguinal hernias, no adenopathy. Bones: No suspicious bony lesions. Degenerative disc disease, most marked at L5-S1. Mild retrolisthe sis L4-5 and L5-S1. No suspicious bone lesions. No vertebral body compression fractures. IMPRESSION: 1. Large soft tissue mass in the left upper quadrant associated with bulky left retroperitoneal lymph adenopathy, all likely representing lymphoma but soft tissue sarcoma is possible. There appears to be a window for percutaneous biopsy between the stomach and splenic flexure. 2. Left kidney is abnormally enlarged and shows suggestion of infarction, relatively sparing the lowe r pole. Possibility of nephritis is less likely. Direct invasion of the left kidney by lymphoma is al so possible. Left nephrolithiasis and small exophytic hyperdense cyst incidentally noted. 3. Small left pleural effusion, probably reactive. 4. Apparent hysterectomy, possibly total. Moderate amount of free fluid in the pelvis. Dictated by: Matt Ivey M.D. on 06/14/2016 at 15:39 Approved by: Matt Ivey M.D. on 06/14/2016 at 16:00
[2016-06-14 17:25] VITALS: BP 146/73; PULSE 65; RESP 18; O2SAT 95
[2016-06-14 20:58] VITALS: BP 150/78; PULSE 65; RESP 18; O2SAT 98
--- NOTE | 2016-06-14 22:19 | NUR ---
daughter concern daughter concerned that she hasn't finished her discussion with the hospitalist. stated that she thought "that the hospitalist would come back this evening." rn explained that the hospitalist will be back in the morning to discuss her mother's care. daughter concerned regarding loose stools, and home care plan. daughter will be back in the am. given support.
[2016-06-14] MEDS: Nystatin 100,000 Unit/mL 5 mL Suspension PO SCH (23:05)
[2016-06-15] MEDS: 0.9% Sodium Chloride 250 ML IV SCH (04:41)
--- NOTE | 2016-06-15 06:34 | NUR ---
activity - loose stool patient slept well through the shift. up twice to ambulate to the bathroom. appropriate with call light had two small dark diareeah stools, continent. care ongoing.
[2016-06-15 06:38] VITALS: BP 154/83; PULSE 70; RESP 18; O2SAT 97
[2016-06-15] MEDS: Sucralfate 100 mg/mL 10 mL Suspension PO SCH ×3 (08:12→18:07)
[2016-06-15] MEDS: Ondansetron 2 mg/mL 2 mL Inj IVPUSH PRN ×2 (09:34→21:04)
--- NOTE | 2016-06-15 10:30 | NUR ---
Possible thrush Pt c/o possible thrush and small sores around her mouth. Pt's tongue is covered in a white coating. Hospitalist notified.
--- NOTE | 2016-06-15 12:04 | NUR ---
Palliative Care Palliative Care received verbal order from Dr Kearney 06/15/16 to assist with goals of care. Patient is a 70 year old female with advanced lymphoma. She was admitted 06/08/16. Her oncologist is Dr Adriane Bonner at the [facility]. Patient lives at home with her daughter. Meghna Jolley (daughter) [phone] Palliative Care to follow. [place]
--- NOTE | 2016-06-15 12:30 | NUR ---
Diet Pt concerned about avoiding food that might exacerbate her thrush and diarrhea and does not know which foods are most appropriate for her. Hospitalist notified and dietary consult ordered.
--- NOTE | 2016-06-15 12:55 | PCM.PNMED ---
Subjective Date of Service Jun 15, 2016 Subjective Patient is still having a significant amount of loose stool. She did have a negative C. difficile screen a few days ago when this all started. She does have poor oral appetite. And notes a possible thrush in her mouth. Patient denies any hematuria since yesterday. Exam Vital Signs Vital Sign - Last Date Time Temp Pulse Resp B/P Pulse Ox O2 Delivery O2 Flow Rate FiO2 06/15/16 06:38 37.6 70 18 154/83 97 Room Air Intake and Output 06/14/16 06/14/16 06/15/16 Cumulative From/Thru 14:59 22:59 06:59 06/08/16 11:25 - 06/15/16 04:34 Intake Total 1011 ml 200 ml 19527 ml Output Total 2000 ml 300 ml 77691 ml Balance -989 ml -100 ml 952 ml Intake Oral 840 ml 200 ml 7945 ml IV Total 171 ml 6924 ml Packed Cells 583 ml Output Urine Total 2000 ml 300 ml 31504 ml Urine/Stool Mix 350 ml Emesis 250 ml # Voids 8 # Bowel Movements 4 17 Exam Constitutional middle-aged woman in no acute distress Head: Alopecia Mouth: It does seem to be white discharge present on her tongue with some cheilits of her lips at the corners Chest: Clear to auscultation Cor: Regular rate and rhythm S1-S2 Abdomen soft there is tenderness in the epigastrium and left upper quadrant Extremities: No pedal edema Neuro: Alert and oriented 3, motor strength is intact bilaterally Lab and Diagnostics Laboratory Tests 72 Hours Test 06/13/16 05:25 06/14/16 08:35 White Blood Count 5.0th/mm3 (3.8-10.1) 4.9th/mm3 (3.8-10.1) Red Blood Count 3.25mil/mm3 (3.90-5.20) 3.31mil/mm3 (3.90-5.20) Hemoglobin 9.3g/dL (12.0-15.6) 9.6g/dL (12.0-15.6) Hematocrit 28.8% (35.0-46.0) 29.8% (35.0-46.0) Mean Corpuscular Volume 88.6fL (81-100) 90.0fL (81-100) Mean Corpuscular Hemoglobin 28.6pg (27.0-35.0) 29.0pg (27.0-35.0) Mean Corpuscular Hemoglobin Concent 32.3% (32.0-37.0) 32.2% (32.0-37.0) Red Cell Distribution Width 15.0% (12.3-15.4) 15.0% (12.3-15.4) Platelet Count 44bil/L (150-400) 42bil/L (150-400) Neutrophils (%) (Auto) 73.0% (40-74) 73.5% (40-74) Lymphocytes (%) (Auto) 12.9% (14-46) 9.6% (14-46) Monocytes (%) (Auto) 12.5% (4-12) 12.4% (4-12) Eosinophils (%) (Auto) 1.2% (0-5) 3.9% (0-5) Basophils (%) (Auto) 0.2% (0-3) 0.4% (0-3) Sodium Level 137mEq/L (134-144) 135mEq/L (134-144) Potassium Level 3.8mEq/L (3.5-5.2) 3.6mEq/L (3.5-5.2) Chloride Level 99mEq/L (97-108) 98mEq/L (97-108) Carbon Dioxide Level 28mmol/L (18-29) 28mmol/L (18-29) Blood Urea Nitrogen 6mg/dL (8-27) 10mg/dL (8-27) Creatinine 0.96mg/dL (0.57-1.00) 0.95mg/dL (0.57-1.00) Estimat Glomerular Filtration Rate 83mL/min (>59) 84mL/min (>59) Glucose Level 128mg/dL (60-99) 128mg/dL (60-99) Calcium Level 9.4mg/dL (8.5-10.1) 9.7mg/dL (8.5-10.1) Total Bilirubin 0.3mg/dL (0.0-1.2) 0.3mg/dL (0.0-1.2) Aspartate Amino Transf (AST/SGOT) 22U/L (0-50) 20U/L (0-50) Alanine Aminotransferase (ALT/SGPT) 8U/L (0-32) 8U/L (0-32) Alkaline Phosphatase 65U/L (25-165) 67U/L (25-165) Total Protein 5.0g/dL (6.4-8.4) 5.1g/dL (6.4-8.4) Albumin 2.9g/dL (3.4-5.0) 3.0g/dL (3.4-5.0) Result Diagram: 06/14/16 0835 06/14/16 0835 Microbiology Blood culture 4 show no growth after 2 days. Urine culture shows no growth. C. difficile DNA amplification negative. . X-Rays, CTs and MRIs CT KUB IMPRESSION: 1. Enlarged heterogeneous appearance of the left kidney with appearance of multiple soft tissue masses appearing within the renal parenchyma as well as within the exophytic regions. There are also ill-defined soft tissue density is identified superior to the kidney at the confluence of the stomach and spleen as well as the medial aspect of the kidney at the level of the aorta encompassing the renal artery and vein. Overall appearance appears most suggestive of given history of lymphoma involvement. However, lack of IV contrast and prior exams limit evaluation. Superimposed or other etiologies such as infection or inflammation include pyelonephritis or potentially areas of renal infarction secondary to tumor involvement of the renal vasculature cannot be excluded. The findings were discussed with Dr. Amol Bryant on 06/08/16 at 2:20 PM. Dictated by: Lizzie Morin M.D. on 06/08/2016 at 14:13 Approved by: Lizzie Morin M.D. on 06/08/2016 at 14:39 .PROCEDURE: CT ABDOMEN AND PELVIS WITH CONTRAST ([id number]) INDICATIONS: hematuria,lymphoma TECHNIQUE: After the administration of oral and intravenous contrast, 5 mm thick sections acquired from the diaphragms to the symphysis. 5 mm thick coronal and sagittal reformats were performed. For radiation dose reduction, the following was used : automated exposure control, adjustment of mA and/or kV according to patient size. COMPARISON: CT KUB 06/08/2016; renal ultrasound 06/11/2016 FINDINGS: Image quality: Excellent. ABDOMEN: Lung bases: Small left pleural effusion is present. Mild atelectasis at the base of the lingula and in the left lower lobe heart size is normal with coronary artery calcifications. Wire or catheter artifacts in the right atrium. Trace pericardial effusion. Solid organs: Liver appears normal in size with homogeneous decreased attenuation. The spleen is enlarged and lobulated. The gallbladder is markedly contracted. The head and body of pancreas appear normal however the tail is obscured or infiltrated by a large mesenteric mass that is markedly heterogeneous in degree of enhancement. It appears confluent with the greater curvature of the stomach, with the medial aspect of the splenic flexure, the anterior aspect of the left renal capsule as well is bulky retroperitoneal adenopathy. The mass is estimated at 6.7 x 9.4 cm in diameter by 7.8 cm cranial caudal. At the caudal aspect of the mass is a smaller heterogeneous mass that abuts the anterior margin of the left kidney. This mass measures 3.9 x 4.8 cm in diameter by 4.1 cm cranial caudal. In the left periaortic region at the level of and encapsulating the left renal vascular bundle is a soft tissue mass presumed to represent conglomerate of abnormal lymph nodes, measuring up 4.9 x 5.1 cm diameter by 3.6 cm craniocaudal. This mass partially wraps around the aorta but does not completely encircle the aorta. The right kidney appears normal, mild dilatation of the extrarenal pelvis and small cortical cyst in the lower pole. The left kidney is enlarged with markedly diminished and mottled enhancement, likely secondary to tumor obstruction of the renal artery and vein. There is a 3 mm nonobstructing calculus in the anterior lower pole. The left renal capsule is thickened and likely invaded by tumor. There is a small exophytic hyperdense cyst in the posterior left lower pole More caudally, there is no additional retroperitoneal or pelvic adenopathy. The uterus appears to be surgically absent. Ovaries are nonvisualized. Moderate amount of free fluid in the pelvis. Miscellaneous: No ventral hernias. PELVIS: Miscellaneous: Small fat filled left inguinal hernias, no adenopathy. Bones: No suspicious bony lesions. Degenerative disc disease, most marked at L5 -S1. Mild retrolisthesis L4-5 and L5-S1. No suspicious bone lesions. No vertebral body compression fractures. IMPRESSION: 1. Large soft tissue mass in the left upper quadrant associated with bulky left retroperitoneal lymphadenopathy, all likely representing lymphoma but soft tissue sarcoma is possible. There appears to be a window for percutaneous biopsy between the stomach and splenic flexure. 2. Left kidney is abnormally enlarged and shows suggestion of infarction, relatively sparing the lower pole. Possibility of nephritis is less likely. Direct invasion of the left kidney by lymphoma is also possible. Left nephrolithiasis and small exophytic hyperdense cyst incidentally noted. 3. Small left pleural effusion, probably reactive. 4. Apparent hysterectomy, possibly total. Moderate amount of free fluid in the pelvis. Dictated by: Matt Ivey M.D. on 06/14/2016 at 15:39 Approved by: Matt Ivey M.D. on 06/14/2016 at 16:00 Assessment & Plan Antoinette Jolley is a 70-year-old female with a past medical history significant for lymphoma on chemotherapy who presented to [facility] emergency department with rigors, chills, and nausea who was admitted for complicated UTI and pyelonephritis. Hospital day #4. 1. Acute complicated urinary tract infection, present on admission. Resolving. - I will DC zosyn on June 14 and no oral antibiotics indicated at this time. - Urine culture negative, as above. 2. Acute pyelonephritis, -Urine culture was negative bu did complete a course of iv antibiotics and still with hematuria and abd pain. 3. Diarrhea, acute, not present on admission. Active. - Patient reports several episodes of diarrhea. Last bowel movement was black in color. The patient has mild abdominal tenderness likely from lymphoma. - Hemoglobin stable. Continue to monitor hemoglobin and hematocrit daily. - Ordered stool guaiac, pending. - C. difficile PCR negative as above. -DC metformin -We will check fecal leukocytes, check GI PCR - Since C. difficile was negative we will go ahead and try low-dose Imodium when necessary to control symptoms - We will also initiate lactobacillus probiotics which patient says has helped in the recent past 4. Hematuria - Patient has a history of hematuria associated with UTIs - most likely secondary to friable mucosa -Maybe related to mucositis with chemo but will further investigate with iv contrast CT abd/pelvis to further elucidate ct without contrast findings. -Does have seen on CT of abdomen pelvis with IV contrast significant tumor burden and cannot rule out invasion of the kidney and there is also a 3 mm left nonobstructing ureteral stroma present which certainly could be source of hematuria -With this finding will go ahead and add Flomax to her regimen. 5. Acute hypokalemia, present on admission. Resolved. - Repleted as necessary. 6. Oral thrush, acute, not present on admission -We will initiate Mycostatin swish and swallow 4 times a day Chronic problems: B-cell lymphoma, subacute, present on admission Followed by oncologist at the [facility] Dr. Adriane Schwartz to which I have placed a phone call to discuss case Patient and daughter wish comfort care if no interventions can be done to improve her current condition We will get palliative care consultation Immunocompromised secondary to chemotherapy, present on admission. Stable. - The patient discussed final round of chemotherapy with her oncologist Dr. Altman at [facility] who wishes to discontinue present chemotherapy and will readdress this as an outpatient in the future. Pancytopenia, secondary to chemotherapy. Stable. - Received 2 units PRBC on 06/09/2015 due to hemoglobin of 7.2. Hemoglobin stable. - Continue to monitor daily. GERD, chronic. - Continue Protonix 20 mg daily. Hypertension, chronic. - Continue losartan 50 mg daily. Hyperlipidemia, chronic. - Restart lovastatin 20 mg daily at bedtime at time of discharge. PRN antiemetics: Zofran and promethazine. PRN bowel regimen: Senna and MiraLAX. PRN analgesics: Tylenol. Disposition: Discharge anticipated within 24-48 hours. Patient will follow up with her primary oncologist on discharge for chemotherapy. . VTE Prophylaxis: SCDs Resuscitation Status: CPR: Attempt Resuscitation Time spent 30 minutes Debbie Kearney MD Jun 15, 2016 12:54
--- NOTE | 2016-06-15 13:02 | NUR ---
NUTRITION CONSULT High calorie/protein nutrition therapy and thrush nutrition therapy education provided. Pt and daughter with no further questions.
[2016-06-15 13:24] VITALS: BP 151/79; PULSE 67; RESP 18; O2SAT 97
--- NOTE | 2016-06-15 13:49 | NUR ---
Social work note - Continued d/c plan PIPE TESTING TECHNICIAN completed EMR review: Pt continues with diarrhea, weakness. MD spoke with pt's oncologist at [facility] about treatment options for pt's lymphoma - No further CA treatment recommended at this time. MD spoke with pt and pt's daughter about Palliative Care consult and family would like to discuss goals of care. MD consulted palliative care. Pt is not stable for d/c at this time - pending Palliative Care consult, PIPE TESTING TECHNICIAN will follow for home health needs vs Hospice referral if recommended. Plan: Home with Daughter - PIPE TESTING TECHNICIAN to follow up on Home needs. MILANA Hagan
[2016-06-15] MEDS: Nystatin 100,000 Unit/mL 5 mL Suspension PO SCH ×2 (14:52→19:06)
--- NOTE | 2016-06-15 14:57 | NUR ---
Palliative Care RESERVE OPERATOR Note06/15/1713:55PM This senior copywriter informed CM RESERVE OPERATORGenesis, that per Dr. Caba pt. will likely need HH services when she discharges from [facility] in the coming days. Genesis confirmed she will talk with pt. and family about this. Kelly Rea, RESERVE OPERATOR, [facility] Palliative Care Services
--- NOTE | 2016-06-15 15:33 | PCM.CONPAL ---
Date of Service Jun 15, 2016 Date of Hospital Admission: Jun 08, 2016 at 15:19 Date of Palliative Consult: Jun 15, 2016 Requesting Provider: Debbie Kearney MD Reason Palliative Care Consult: Goals of Care Discussion Hospital Unit @time of consult: Other ([facility]OC) Palliative Care Recommendation 70-year-old female with diagnosis of diffuse large B-cell lymphoma, on palliative chemotherapy, admitted with pyelonephritis. Slowly improving. Patient and her daughter have made the decision to discontinue chemotherapy for the time being. She and her daughter hope that, once off chemotherapy, her appetite and nutritional status will improve, her body will strengthen and recover somewhat, and at that point they may reconsider restarting palliative chemotherapy. Palliative medicine consulted to assist patient and family with determination of goals of care. Summary of palliative recommendations: -Symptom management (Pain/other)- adequate pain relief with acetaminophen. Thinks that she has been told to never take morphine "because it would erode through" her stomach (her lymphoma is felt to be transmural in the stomach wall ) and cause perforation- I tried to talk with them about this but she and her daughter are pretty adamant that they were told that. They do know not to use NSAIDs. She has problems with occasional GERD and we talked about use of calcium antacids. She plans on restarting her Nexium once she is discharged. Discussed potential treatments for improving her appetite and energy. Could consider addition of low-dose dexamethasone, initially 2 mg PO daily (though she and her daughter are very wary of using steroids because of the potential effect on her blood sugars). Another option might be use of olanzapine, 5 mg QHS, which might be of benefit for both nausea and anorexia. At the end of our conversation, patient decided that her appetite was improving already and she did not want to start any new medications yet. Physical therapy consultation requested. Patient and her daughter were interested in possible home health physical therapy assistance/follow-up for strengthening and rehabilitation. -DPOA/Advanced Directives/POLST- patient continues to wish to be full code. She would not want to be kept alive on machines, but would want resuscitation attempted at this point in hopes that she could recover and have good quality of life for a period of time. She and her daughter are quite realistic, though , and will revisit this question if she shows signs of progressive deterioration , as she would not want to be kept alive if there is no meaningful chance of quality recovery. -Family/emotional support- excellent support from multiple family numbers and friends Patient Goals: 1. Patient and daughter want to be told the truth about her illness, even if it is unpleasant. 2. Patient and daughter would like to be told prognosis when it can be predicted , to better guide treatment decisions. 3. Patient would choose quality of life over quantity of life, and defines quality as being functional and mobile, and being able to be in her own home Additional Medical Diagnoses with primary management by Hospitalist team include : 1. Acute complicated urinary tract infection, present on admission 2. Acute pyelonephritis 3. Possible melanotic stool, not present on admission. Active. 4. Hematuria 5. Acute hypokalemia, present on admission. Resolved. Chronic problems: Immunocompromised secondary to chemotherapy, present on admission. Stable. Pancytopenia, secondary to chemotherapy. Stable. GERD, chronic. Hypertension, chronic. Hyperlipidemia, chronic. Problems: End of Life Preferences Full code Goals of Care Recovery and return home, improve strength and nutrition by taking time off from chemotherapy Her greatest near term goal is to survive to see her granddaughter graduate from high school this summer Disposition Home with possible home health Resuscitation Status Resuscitation Status: CPR: Attempt Resuscitation POLST Updates/Changes Previous POLST?: No . Pain: Mild Symptom management: Nausea, Pain Pt History History of Present Illness Per admission H&P: 70 year old female with large B-cell lymphoma involving intra-abdominal structures , currently receiving palliative chemotherapy last session being on 05/13/2016; she is schedule for the next session on 06/13/2016. Patient was sent to the emergency room by her primary oncologist due to symptom of cough, rash, being shaky and having chills after she received cefuroxime at an urgent care for urinary septum. Patient reported that she has been having hematuria earlier this month for which she was put on ciprofloxacin. She took the Cipro for 10 days of last Saturday. Her urinary symptom symptoms recurred and last night where she was treated with IV fluids and single dose IV antibiotics, received blood and urine tests, and diagnosed with kidney infection. Associated symptoms include pruritic facial rash that awakened her from sleep last night, shortness of breath, increased urinary frequency, urinary incontinence, two bouts of vomiting between 3 and 5 days ago, mild sore throat, and chronic abdominal pain secondary to underlying cancer diagnosis. Patient denies cough, and throat swelling. She was instructed by her primary oncologist to come to the hospital for further evaluation. Palliative medicine consulted to assist patient and family in determination of goals of care. Patient's daughter reportedly requested palliative consultation. Prior to visiting patient, I spoke with her hospitalist Dr. Kearney. I also contacted the office of her oncologist, Dr. Adriane Bonner in [place] and obtained copies of records from her last several clinic visits. (Copies of these records are appended to her paper chart.) These indicated that she had shown gross disease progression on [facility] chemotherapy and had tolerated treatment very poorly. Because of this, she was felt to not be a candidate for further aggressive chemotherapy and was instead switched over to a palliative program with rituximab/bendamustine. She had completed 1 of a planned 6 cycles of this chemotherapy prior to admission. She and her daughter both say that she is not going to continue with any chemotherapy for the time being, though she says if she improved significantly she might reconsider restarting in the future. Her cancer was originally diagnosed in the summer of 2016, after progressive symptoms over the preceding 6-9 months. She and her daughter do express some resentment that she was not diagnosed earlier. While here, patient initially continued to feel poorly with abdominal discomfort , intermittent nausea and emesis, etc. but now finally seems to be improving. She completed her course of IV antibiotics yesterday. She has developed oral candidiasis and has started treatment for that. Today her nausea is somewhat improved. She has had one episode of reflux (usually uses Nexium at home). Today she feels as if her appetite is doing a bit better. She has had diarrhea (C. difficile negative) which seems to be improving. No dyspnea, chest pain, severe abdominal pain- she does have chronic deep ache in her left flank related to the mass associated with her left kidney. Still feels a bit lightheaded at times and generally feels weak. By improving her nutritional intake once her GI symptoms are controlled, she hopes that she will get stronger and will begin to mobilize. 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 She and her daughter are trying to sell off the remaining assets from that. Her 2 years ago of metastatic melanoma. He actually ended his life with purposeful overdose of morphine. Patient and her daughter are very realistic and pragmatic about her diagnosis/prognosis/treatment options informed by their experiences with him. Family Members Issues: Primary concern is for patient's comfort She has lived with her daughter Meghna and Meghna's two daughters for the last 13 years Her most important goal at this time is to survive to see the grand-daughters graduate from high school this year Daughter Meghna is her POA; she also has a son Francois who has been involved with her care who lives in [place]. He has just started a new job and so we will be unable to commit as much time to her support as previously. Meghna works for [employer]) in [employer]. Patient and her daughter say that she will not ever go anywhere other than to her own home- refuses to consider SNF placement. Her daughter plans on coordinating things with several other family members so that somebody is in the house with her during the daytime every day. Patient remains mobile enough and active enough that she does not require 24/7 nursing care. They have advanced directive and POA paperwork at home but have not yet completed them Social Support: Excellent support from family members Patient reportedly also has many friends who visit, call her frequently, provide moral support Living Situation: Lives at home with assistance of family Spiritual Support Spiritual Support Rastafarian but does not attend mosque regularly Palliative Performance Scale PPS Patient Status: Baseline PPS Ambulation: Reduced PPS Activity: Unable to do any work PPS Self-Care: Occasional assistance necessary PPS Intake: Normal or reduced PPS Conscious Level: Full or confusion Performance Scale: 50% ADLs ADL Patient Status: Baseline ADL Ambulation: Reduced ADL Dressing: Occasional assistance necessary ADL Feeding: Occasional assistance necessary ADL Hygene/bathing: Occasional assistance necessary ADL Transfers: Occasional assistance necessary POLST at Time of Admission Previous POLST?: No Allergy Allergies Reviewed: Yes Medications Current Medications: Current Medications Piperacillin Sod/ Tazobactam Sod 3.375 gm/Dextrose/ Water 50 ml @ 12.5 mls/hr Q8H IV Last administered on 06/13/16t 19:06; Admin Dose 12.5 MLS/HR; Start 06/13 at 16:30; Stop 06/13/16 at 22:38; Status DC Piperacillin Sod/ Tazobactam Sod/ Dextrose/Water 50 ml @ 12.5 mls/hr Q8H IV Last administered on 06/14/16 04:12; Admin Dose 12.5 MLS/HR; Start 06/14/16 at 04:00; Stop 06/14/16 at 11:14; Status DC Witch Agustina/ Glycerin 1 pad PRN PRN TOPICAL Last administered on 06/14/16 17: 29; Admin Dose 1 PAD; Start 06/14/16 at 15:40 Loperamide HCl 1 mg Q6H PRN PO; Start 06/15/16 at 11:10 Nystatin 500,000 unit PCHS PO; Start 06/15/16 at 13:00 Scheduled Esomeprazole Magnesium (Nexium) 20 Mg Capsule.dr 20 MG PO DAILY Fexofenadine (Fexofenadine) 60 Mg Tablet 60 MG PO HS Losartan Potassium (Losartan Potassium) 50 Mg Tablet 50 MG PO QAM Lovastatin (Lovastatin) 20 Mg Tablet 20 MG PO HS Metformin (Metformin) 500 Mg Tablet 500 MG PO BID Scheduled PRN Lorazepam (Ativan) 0.5 Mg Tablet 0.5 MG PO DAILY PRN PRN For Anxiety or Agitation Ondansetron ODT (Ondansetron ODT) 4 Mg Tab.rapdis 4 MG PO DAILY PRN PRN For Nausea Prochlorperazine Maleate (Prochlorperazine) 10 Mg Tablet 10 MG PO DAILY PRN PRN For Nausea Objective Findings Exam Vital Sign - Last Date Time Temp Pulse Resp B/P Pulse Ox O2 Delivery O2 Flow Rate FiO2 06/15/16 06:38 37.6 70 18 154/83 97 Room Air Intake and Output 06/14/16 06/14/16 06/15/16 Cumulative From/Thru 15:00 23:00 07:00 06/08/16 11:25 - 06/15/16 04:34 Intake Total 1011 ml 200 ml 56014 ml Output Total 2000 ml 300 ml 62303 ml Balance -989 ml -100 ml 952 ml Intake Oral 840 ml 200 ml 7945 ml IV Total 171 ml 6924 ml Packed Cells 583 ml Output Urine Total 2000 ml 300 ml 08193 ml Urine/Stool Mix 350 ml Emesis 250 ml # Voids 8 # Bowel Movements 4 17 Objective Pleasant elderly woman, pale, lying in bed. Complete alopecia. Vital signs noted. Skin is warm and dry. Head and neck exam without acute focal findings. Lungs clear anterior and posterior; heart sounds distant and regular, abdomen rounded, mildly tender in the left upper quadrant. No rigidity or rebound. Extremities without pitting edema. Neurologic grossly intact Lab/Diagnostics Lab and Imaging results reviewed in detail in EMR. Time spent Total time 90 minutes; >50% face to face with patient and family, providing counselling regarding plans and recommendations, and in care coordination with her medical teams. A few both total time, 15 minutes counseling for advanced care planning with the patient and her daughter/Frank Wiggins MD Jun 15, 2016 11:54
[2016-06-15 18:01] VITALS: BP 150/81; PULSE 65; RESP 16; O2SAT 97
[2016-06-15 20:50] VITALS: BP 132/77; PULSE 71; RESP 16; O2SAT 97
[2016-06-15] MEDS: MetoCLOpramide 5 mg/mL 2 mL Inj IVPUSH PRN (22:11)
[2016-06-16 02:46] VITALS: BP 147/78; PULSE 62; RESP 16; O2SAT 96
[2016-06-16 04:01] LABS: BASOPHILS % (AUTO) 0.7 % (0-3); EOSINOPHILS % (AUTO) 3.8 % (0-5); Mean Corpuscular Volume 87.2 fL (81-100); NEUTROPHILS % (AUTO) 71.2 % (40-74); Platelet Count 53 bil/L (150-400)
--- NOTE | 2016-06-16 04:45 | NUR ---
Hematuria/Pain/N/V/Activity Pt urine segundo with visible small clots x2 before mid night. pt voided clear pale urine x2 after mid night, no visible clots. pain management effective with Tylenol. pt c/o nausea. Administered Zofran, but didn't help. pt puked 20 cc brownish color emesis. Administered Reglan and it was effective. Pt ambulated to the rest room multiple times with SBA. gait steady. Bed is locked and in low position, call light within reach. will continue to monitor.
[2016-06-16] MEDS ORDERED: 0.9% Sodium Chloride 100 ML ONE (05:51)
[2016-06-16 06:58] VITALS: BP 126/68; PULSE 79; RESP 16; O2SAT 98
[2016-06-16] MEDS: Sucralfate 100 mg/mL 10 mL Suspension PO SCH ×4 (08:03→17:19)
--- NOTE | 2016-06-16 08:35 | NUR ---
FRANKY signed. LYNN Do
[2016-06-16] MEDS: Nystatin 100,000 Unit/mL 5 mL Suspension PO SCH ×4 (09:34→21:19)
--- NOTE | 2016-06-16 11:51 | NUR ---
Social Work-readiness for discharge: Data:EMR reviewed. Pt is on day 8 of hospitalization for pyelonephritis per H&P. Pt is not medically stable, anticipate tomorrow. SW followed up with pt's daughter Meghna ELISEO role explained. Meghna states she will have someone that will be able stay with pt during the day while she is at work. Family did meet with palliative care- no Hospice at this time. SW discussed HH with daughter, daughter declining at this time. SW to follow up again prior to discharge. SW explained they can go through PCP if they get home and realize they need home health. Pt's daughter to provide transport home at discharge. SW will continue to follow. Assessment:pt who is independent at baseline. Plan:Pt to discharge home when medically stable via POV. Pt and family declining HH at this time. SW will continue to follow. LYNN Do
--- NOTE | 2016-06-16 11:56 | NUR ---
Evaluation completed. Please go to "Notes" then click on "Assessments and Notes" (bottom left corner of screen). Then select appropriate discipline tab on top of screen.
--- NOTE | 2016-06-16 12:11 | PCM.PNMED ---
Subjective Date of Service Jun 16, 2016 Subjective Postmortem episode yesterday of small amount of vomitus. She is not on any scheduled antiemetics and we reviewed that this might be appropriate to do. She notes that she is not taking her PPI which she usually takes at home so we will go ahead and restart that. She had one episode yesterday of a little bit of blood streaking with urine but no further amounts after that. Exam Vital Signs Vital Sign - Last Date Time Temp Pulse Resp B/P Pulse Ox O2 Delivery O2 Flow Rate FiO2 06/16/16 06:58 37.0 79 16 126/68 98 Room Air Intake and Output 06/15/16 06/15/16 06/16/16 Cumulative From/Thru 15:00 23:00 07:00 06/08/16 11:25 - 06/16/16 06:58 Intake Total 650 ml 02672 ml Output Total 850 ml 02639 ml Balance -200 ml 752 ml Intake Oral 650 ml 8595 ml IV Total 6924 ml Packed Cells 583 ml Output Urine Total 850 ml 30135 ml Urine/Stool Mix 350 ml Emesis 250 ml # Voids 8 # Bowel Movements 0 17 Exam Constitutional middle-aged woman in no acute distress Head: Alopecia Mouth: It does seem to be white discharge present on her tongue with some cheilits of her lips at the corners Chest: Clear to auscultation Cor: Regular rate and rhythm S1-S2 Abdomen soft there is tenderness in the epigastrium and left upper quadrant Extremities: No pedal edema Neuro: Alert and oriented 3, motor strength is intact bilaterally Lab and Diagnostics Laboratory Tests 72 Hours Test 06/14/16 08:35 06/15/16 17:10 06/16/16 03:40 White Blood Count 4.9th/mm3 (3.8-10.1) 2.9th/mm3 (3.8-10.1) Red Blood Count 3.31mil/mm3 (3.90-5.20) 2.96mil/mm3 (3.90-5.20) Hemoglobin 9.6g/dL (12.0-15.6) 8.3g/dL (12.0-15.6) Hematocrit 29.8% (35.0-46.0) 25.8% (35.0-46.0) Mean Corpuscular Volume 90.0fL (81-100) 87.2fL (81-100) Mean Corpuscular Hemoglobin 29.0pg (27.0-35.0) 28.0pg (27.0-35.0) Mean Corpuscular Hemoglobin Concent 32.2% (32.0-37.0) 32.2% (32.0-37.0) Red Cell Distribution Width 15.0% (12.3-15.4) 15.1% (12.3-15.4) Platelet Count 42bil/L (150-400) 53bil/L (150-400) Neutrophils (%) (Auto) 73.5% (40-74) 71.2% (40-74) Lymphocytes (%) (Auto) 9.6% (14-46) 15.3% (14-46) Monocytes (%) (Auto) 12.4% (4-12) 9.0% (4-12) Eosinophils (%) (Auto) 3.9% (0-5) 3.8% (0-5) Basophils (%) (Auto) 0.4% (0-3) 0.7% (0-3) Sodium Level 135mEq/L (134-144) 139mEq/L (134-144) Potassium Level 3.6mEq/L (3.5-5.2) 4.7mEq/L (3.5-5.2) Chloride Level 98mEq/L (97-108) 101mEq/L (97-108) Carbon Dioxide Level 28mmol/L (18-29) 29mmol/L (18-29) Blood Urea Nitrogen 10mg/dL (8-27) 10mg/dL (8-27) Creatinine 0.95mg/dL (0.57-1.00) 0.82mg/dL (0.57-1.00) Estimat Glomerular Filtration Rate 84mL/min (>59) 99mL/min (>59) Glucose Level 128mg/dL (60-99) 120mg/dL (60-99) Calcium Level 9.7mg/dL (8.5-10.1) 8.1mg/dL (8.5-10.1) Total Bilirubin 0.3mg/dL (0.0-1.2) 0.2mg/dL (0.0-1.2) Aspartate Amino Transf (AST/SGOT) 20U/L (0-50) 16U/L (0-50) Alanine Aminotransferase (ALT/SGPT) 8U/L (0-32) 5U/L (0-32) Alkaline Phosphatase 67U/L (25-165) 59U/L (25-165) Total Protein 5.1g/dL (6.4-8.4) 4.7g/dL (6.4-8.4) Albumin 3.0g/dL (3.4-5.0) 3.0g/dL (3.4-5.0) Result Diagram: 06/16/16 0340 06/16/16 0340 Microbiology Blood culture 4 show no growth after 2 days. Urine culture shows no growth. C. difficile DNA amplification negative. . X-Rays, CTs and MRIs CT KUB IMPRESSION: 1. Enlarged heterogeneous appearance of the left kidney with appearance of multiple soft tissue masses appearing within the renal parenchyma as well as within the exophytic regions. There are also ill-defined soft tissue density is identified superior to the kidney at the confluence of the stomach and spleen as well as the medial aspect of the kidney at the level of the aorta encompassing the renal artery and vein. Overall appearance appears most suggestive of given history of lymphoma involvement. However, lack of IV contrast and prior exams limit evaluation. Superimposed or other etiologies such as infection or inflammation include pyelonephritis or potentially areas of renal infarction secondary to tumor involvement of the renal vasculature cannot be excluded. The findings were discussed with Dr. Amol Bryant on 06/08/16 at 2:20 PM. Dictated by: Lizzie Morin M.D. on 06/08/2016 at 14:13 Approved by: Lizzie Morin M.D. on 06/08/2016 at 14:39 .PROCEDURE: CT ABDOMEN AND PELVIS WITH CONTRAST ([id number]) INDICATIONS: hematuria,lymphoma TECHNIQUE: After the administration of oral and intravenous contrast, 5 mm thick sections acquired from the diaphragms to the symphysis. 5 mm thick coronal and sagittal reformats were performed. For radiation dose reduction, the following was used : automated exposure control, adjustment of mA and/or kV according to patient size. COMPARISON: CT KUB 06/08/2016; renal ultrasound 06/11/2016 FINDINGS: Image quality: Excellent. ABDOMEN: Lung bases: Small left pleural effusion is present. Mild atelectasis at the base of the lingula and in the left lower lobe heart size is normal with coronary artery calcifications. Wire or catheter artifacts in the right atrium. Trace pericardial effusion. Solid organs: Liver appears normal in size with homogeneous decreased attenuation. The spleen is enlarged and lobulated. The gallbladder is markedly contracted. The head and body of pancreas appear normal however the tail is obscured or infiltrated by a large mesenteric mass that is markedly heterogeneous in degree of enhancement. It appears confluent with the greater curvature of the stomach, with the medial aspect of the splenic flexure, the anterior aspect of the left renal capsule as well is bulky retroperitoneal adenopathy. The mass is estimated at 6.7 x 9.4 cm in diameter by 7.8 cm cranial caudal. At the caudal aspect of the mass is a smaller heterogeneous mass that abuts the anterior margin of the left kidney. This mass measures 3.9 x 4.8 cm in diameter by 4.1 cm cranial caudal. In the left periaortic region at the level of and encapsulating the left renal vascular bundle is a soft tissue mass presumed to represent conglomerate of abnormal lymph nodes, measuring up 4.9 x 5.1 cm diameter by 3.6 cm craniocaudal. This mass partially wraps around the aorta but does not completely encircle the aorta. The right kidney appears normal, mild dilatation of the extrarenal pelvis and small cortical cyst in the lower pole. The left kidney is enlarged with markedly diminished and mottled enhancement, likely secondary to tumor obstruction of the renal artery and vein. There is a 3 mm nonobstructing calculus in the anterior lower pole. The left renal capsule is thickened and likely invaded by tumor. There is a small exophytic hyperdense cyst in the posterior left lower pole More caudally, there is no additional retroperitoneal or pelvic adenopathy. The uterus appears to be surgically absent. Ovaries are nonvisualized. Moderate amount of free fluid in the pelvis. Miscellaneous: No ventral hernias. PELVIS: Miscellaneous: Small fat filled left inguinal hernias, no adenopathy. Bones: No suspicious bony lesions. Degenerative disc disease, most marked at L5 -S1. Mild retrolisthesis L4-5 and L5-S1. No suspicious bone lesions. No vertebral body compression fractures. IMPRESSION: 1. Large soft tissue mass in the left upper quadrant associated with bulky left retroperitoneal lymphadenopathy, all likely representing lymphoma but soft tissue sarcoma is possible. There appears to be a window for percutaneous biopsy between the stomach and splenic flexure. 2. Left kidney is abnormally enlarged and shows suggestion of infarction, relatively sparing the lower pole. Possibility of nephritis is less likely. Direct invasion of the left kidney by lymphoma is also possible. Left nephrolithiasis and small exophytic hyperdense cyst incidentally noted. 3. Small left pleural effusion, probably reactive. 4. Apparent hysterectomy, possibly total. Moderate amount of free fluid in the pelvis. Dictated by: Matt Ivey M.D. on 06/14/2016 at 15:39 Approved by: Matt Ivey M.D. on 06/14/2016 at 16:00 Assessment & Plan Antoinette Jolley is a 70-year-old female with a past medical history significant for lymphoma on chemotherapy who presented to [facility] emergency department with rigors, chills, and nausea who was admitted for complicated UTI and pyelonephritis. Hospital day #4. 1. Acute complicated urinary tract infection, present on admission. Resolving. - I will DC zosyn on June 14 and no oral antibiotics indicated at this time. - Urine culture negative, as above. 2. Acute pyelonephritis, -Urine culture was negative but did complete a course of iv antibiotics and still with hematuria and abd pain. 3. Diarrhea, acute, not present on admission. Active. - Patient reports several episodes of diarrhea. Last bowel movement was black in color. The patient has mild abdominal tenderness likely from lymphoma. - Hemoglobin stable. Continue to monitor hemoglobin and hematocrit daily. - Ordered stool guaiac, pending. - C. difficile PCR negative as above. -DC metformin -We will check fecal leukocytes, check GI PCR - Since C. difficile was negative we will go ahead and try low-dose Imodium when necessary to control symptoms - We will also initiate lactobacillus probiotics which patient says has helped in the recent past -She took 1 dose of Imodium yesterday and has had no further diarrhea. -Stool studies including PCR negative 4. Hematuria - Patient has a history of hematuria associated with UTIs - most likely secondary to friable mucosa -Maybe related to mucositis with chemo but will further investigate with iv contrast CT abd/pelvis to further elucidate ct without contrast findings. -Does have seen on CT of abdomen pelvis with IV contrast significant tumor burden and cannot rule out invasion of the kidney and there is also a 3 mm left nonobstructing ureteral stroma present which certainly could be source of hematuria -With this finding will go ahead and add Flomax to her regimen. - Patient did not tolerate Flomax caused some flushing so we will DC this 5. Acute hypokalemia, present on admission. Resolved. - Repleted as necessary. 6. Oral thrush, acute, not present on admission -We will initiate Mycostatin swish and swallow 4 times a day 7. Chronic nausea vomiting, present on admission -We will go ahead and reinstitute her Protonix -We will put her on scheduled Zofran 4 mg every 6 hours Chronic problems: B-cell lymphoma, subacute, present on admission Followed by oncologist at the [facility] Dr. Adriane Schwartz to which I have placed a phone call to discuss case Patient and daughter wish comfort care if no interventions can be done to improve her current condition We will get palliative care consultation Immunocompromised secondary to chemotherapy, present on admission. Stable. - The patient discussed final round of chemotherapy with her oncologist Dr. Altman at [facility] who wishes to discontinue present chemotherapy and will readdress this as an outpatient in the future. Pancytopenia, secondary to chemotherapy. Stable. - Received 2 units PRBC on 06/09/2015 due to hemoglobin of 7.2. Hemoglobin stable. - Continue to monitor daily. GERD, chronic. - Continue Protonix 20 mg daily. Hypertension, chronic. - Continue losartan 50 mg daily. Hyperlipidemia, chronic. - Restart lovastatin 20 mg daily at bedtime at time of discharge. PRN antiemetics: Zofran and promethazine. PRN bowel regimen: Senna and MiraLAX. PRN analgesics: Tylenol. Disposition: Discharge anticipated within 24-48 hours. Patient will follow up with her primary oncologist on discharge for chemotherapy. . VTE Prophylaxis: SCDs Resuscitation Status: CPR: Attempt Resuscitation Time spent 30 minutes Debbie Kearney MD Jun 16, 2016 12:11
[2016-06-16] MEDS: MetoCLOpramide 5 mg/mL 2 mL Inj IVPUSH PRN (15:20)
[2016-06-16] MEDS: 0.9% Sodium Chloride 250 ML IV SCH (15:52)
[2016-06-16 15:53] VITALS: BP 154/76; PULSE 69; RESP 16; O2SAT 95
--- NOTE | 2016-06-16 16:17 | NUR ---
Hematuria/nausea/vomiting Pt has been experiencing hematuria with small clots. C/o nausea unrelieved with the PO Zofran. Given Reglan. Pt asked if it helped decrease her nausea, and pt reported that she "thinks" it's helping, but would like to rest. Hospitalist notified of hematuria. Will continue to monitor.
[2016-06-16 18:03] VITALS: BP 177/95; PULSE 71; RESP 16; O2SAT 97
--- NOTE | 2016-06-16 18:20 | NUR ---
Elevated BP Pt's BP is elevated at 177/95. Pt denies CP and M[place]. Pt is still having abd pain, but confirms that the Ativan and warm blanket are helping slightly. Hospitalist notified. Will continue to monitor.
[2016-06-16 21:09] VITALS: BP 175/91; PULSE 74; RESP 16; O2SAT 96
[2016-06-17 05:12] LABS: BASOPHILS % (AUTO) 0.4 % (0-3); MONOCYTES % (AUTO) 8.7 % (4-12); Mean Corpuscular Hemoglobin 28.4 pg (27.0-35.0); Mean Corpuscular Volume 89.5 fL (81-100); NEUTROPHILS % (AUTO) 71.7 % (40-74); Platelet Count 49 bil/L (150-400)
--- NOTE | 2016-06-17 05:20 | NUR ---
Elevated BP/pain/Nausea BP175/91 at bed time and 161/85 at 0245. pt asymptomatic. noticed night hospitalist. pain well controlled with Tylenol. pt had nausea earlier in the shift, but took Zofran 2hrs prior to nausea. pt doesn't want to take any more anti-nausea mediation. resolve by itself. bed is locked and in low position. call light within reach. will continue to monitor.
[2016-06-17 06:03] VITALS: BP 161/81; PULSE 67; RESP 18; O2SAT 96
[2016-06-17] MEDS ORDERED: Pantoprazole 40 mg ER24 Tablet PO SCH (07:30)
--- NOTE | 2016-06-17 07:38 | NUR ---
Urine 300mls pink tinged urine output this morning early shift with small clots noted and 1 clot size of nickel and fibrous texture. Will let MD know in rounds and continue to monitor with frequent rounds.
[2016-06-17 07:59] VITALS: BP 162/83; PULSE 72; RESP 18; O2SAT 96
[2016-06-17] MEDS: Sucralfate 100 mg/mL 10 mL Suspension PO SCH ×2 (08:38→13:20)
[2016-06-17] MEDS: Nystatin 100,000 Unit/mL 5 mL Suspension PO SCH ×2 (08:38→13:00)
--- NOTE | 2016-06-17 11:21 | PCM.DIMED ---
Discharge Instructions Date of Service Jun 17, 2016 Dates of Hospitalization Jun 08, 2016 at 15:19 Discharge Diagnosis Discharge Diagnosis Hematuria, abdominal pain, extensive abdominal B-cell lymphoma Diet Other (as tolerated) Activity Other (breasts is tolerated) Call your provider Fever or Chills, Shortness of breath, Bleeding, Chest pain, Vomitting, Excessive diarrhea, Weakness (unilateral) Patient Instructions Additional Information Follow-up with your oncologist, Dr. Schwartz in [facility] [place] in 5-7 days, sooner if problems. Her T oncologist to refer to your urologist for further evaluation of hematuria. He mentioned that your urologist is Dr. Curiel at the [facility]. Debbie Kearney MD Jun 17, 2016 11:21
[2016-06-17] MEDS ORDERED: SUCR1ORA PO (11:36)
[2016-06-17] MEDS ORDERED: ONDA4TAB6 PO (11:36)
[2016-06-17] MEDS ORDERED: PANT40TA3 PO (11:40)
[2016-06-17] MEDS ORDERED: OXYC5CAP4 PO (11:40)
[2016-06-17] MEDS ORDERED: LORA0.5T PO (11:40)
[2016-06-17 11:55] VITALS: BP 144/75; PULSE 73; RESP 16; O2SAT 96
--- NOTE | 2016-06-17 13:37 | NUR ---
Discharge Pt to discharge to home with daughter; A&Ox3, able to GORDON, port-a-cath discontinued, no blood in most recent urine output and pain tolerable. Pt and daughter given written and verbal instructions with list of medications and dosages taken. Pt instructed to follow up with her Oncologist Dr Schwartz in [facility] in 5-7 days or sooner if problems persist; Her Oncologist to refer her to Urologist (Dr Curiel) for further evaluation of hematuria. Pt given Rx's for Oxycodone, Pantoprazole, Lorazepam, Ondansetron, Sucralfate and Rx for Home Health RN and PT. Pt also given phone number for marriage and family social worker if any questions re: Home Health referral. Pt and daughter states understanding of all medication and f/u appt instructions. All personal belongings with pt at time of discharge. Aide took pt off unit at time of discharge.
--- NOTE | 2016-06-17 13:44 | PCM.DC.MED ---
Discharge Summary Date of Service Jun 17, 2016 Dates of Hospitalization Date of Hospital Admission Jun 08, 2016 at 15:19 Date of Discharge: Jun 17, 2016 Providers: Admitting Physician: Frank Ledezma MD Primary Care Physician: Johnnie Jimenez Attending Physician: Frank Ledezma MD Diagnosis at Time of Discharge Diagnosis at Time of Discharge Hematuria, abdominal pain, extensive abdominal B-cell lymphoma Consultations Palliative care Procedures XRay, CTs & MRIs CT KUB IMPRESSION: 1. Enlarged heterogeneous appearance of the left kidney with appearance of multiple soft tissue masses appearing within the renal parenchyma as well as within the exophytic regions. There are also ill-defined soft tissue density is identified superior to the kidney at the confluence of the stomach and spleen as well as the medial aspect of the kidney at the level of the aorta encompassing the renal artery and vein. Overall appearance appears most suggestive of given history of lymphoma involvement. However, lack of IV contrast and prior exams limit evaluation. Superimposed or other etiologies such as infection or inflammation include pyelonephritis or potentially areas of renal infarction secondary to tumor involvement of the renal vasculature cannot be excluded. The findings were discussed with Dr. Amol Bryant on 06/08/16 at 2:20 PM. Dictated by: Lizzie Morin M.D. on 06/08/2016 at 14:13 Approved by: Lizzie Morin M.D. on 06/08/2016 at 14:39 .PROCEDURE: CT ABDOMEN AND PELVIS WITH CONTRAST ([id number]) INDICATIONS: hematuria,lymphoma TECHNIQUE: After the administration of oral and intravenous contrast, 5 mm thick sections acquired from the diaphragms to the symphysis. 5 mm thick coronal and sagittal reformats were performed. For radiation dose reduction, the following was used : automated exposure control, adjustment of mA and/or kV according to patient size. COMPARISON: CT KUB 06/08/2016; renal ultrasound 06/11/2016 FINDINGS: Image quality: Excellent. ABDOMEN: Lung bases: Small left pleural effusion is present. Mild atelectasis at the base of the lingula and in the left lower lobe heart size is normal with coronary artery calcifications. Wire or catheter artifacts in the right atrium. Trace pericardial effusion. Solid organs: Liver appears normal in size with homogeneous decreased attenuation. The spleen is enlarged and lobulated. The gallbladder is markedly contracted. The head and body of pancreas appear normal however the tail is obscured or infiltrated by a large mesenteric mass that is markedly heterogeneous in degree of enhancement. It appears confluent with the greater curvature of the stomach, with the medial aspect of the splenic flexure, the anterior aspect of the left renal capsule as well is bulky retroperitoneal adenopathy. The mass is estimated at 6.7 x 9.4 cm in diameter by 7.8 cm cranial caudal. At the caudal aspect of the mass is a smaller heterogeneous mass that abuts the anterior margin of the left kidney. This mass measures 3.9 x 4.8 cm in diameter by 4.1 cm cranial caudal. In the left periaortic region at the level of and encapsulating the left renal vascular bundle is a soft tissue mass presumed to represent conglomerate of abnormal lymph nodes, measuring up 4.9 x 5.1 cm diameter by 3.6 cm craniocaudal. This mass partially wraps around the aorta but does not completely encircle the aorta. The right kidney appears normal, mild dilatation of the extrarenal pelvis and small cortical cyst in the lower pole. The left kidney is enlarged with markedly diminished and mottled enhancement, likely secondary to tumor obstruction of the renal artery and vein. There is a 3 mm nonobstructing calculus in the anterior lower pole. The left renal capsule is thickened and likely invaded by tumor. There is a small exophytic hyperdense cyst in the posterior left lower pole More caudally, there is no additional retroperitoneal or pelvic adenopathy. The uterus appears to be surgically absent. Ovaries are nonvisualized. Moderate amount of free fluid in the pelvis. Miscellaneous: No ventral hernias. PELVIS: Miscellaneous: Small fat filled left inguinal hernias, no adenopathy. Bones: No suspicious bony lesions. Degenerative disc disease, most marked at L5 -S1. Mild retrolisthesis L4-5 and L5-S1. No suspicious bone lesions. No vertebral body compression fractures. IMPRESSION: 1. Large soft tissue mass in the left upper quadrant associated with bulky left retroperitoneal lymphadenopathy, all likely representing lymphoma but soft tissue sarcoma is possible. There appears to be a window for percutaneous biopsy between the stomach and splenic flexure. 2. Left kidney is abnormally enlarged and shows suggestion of infarction, relatively sparing the lower pole. Possibility of nephritis is less likely. Direct invasion of the left kidney by lymphoma is also possible. Left nephrolithiasis and small exophytic hyperdense cyst incidentally noted. 3. Small left pleural effusion, probably reactive. 4. Apparent hysterectomy, possibly total. Moderate amount of free fluid in the pelvis. Dictated by: Matt Ivey M.D. on 06/14/2016 at 15:39 Approved by: Matt Ivey M.D. on 06/14/2016 at 16:00 Brief History Per admission H&P: 70 year old female with large B-cell lymphoma involving intra-abdominal structures , currently receiving palliative chemotherapy last session being on 05/13/2016; she is schedule for the next session on 06/13/2016. Patient was sent to the emergency room by her primary oncologist due to symptom of cough, rash, being shaky and having chills after she received cefuroxime at an urgent care for urinary septum. Patient reported that she has been having hematuria earlier this month for which she was put on ciprofloxacin. She took the Cipro for 10 days of last Saturday. Her urinary symptom symptoms recurred and last night where she was treated with IV fluids and single dose IV antibiotics, received blood and urine tests, and diagnosed with kidney infection. Associated symptoms include pruritic facial rash that awakened her from sleep last night, shortness of breath, increased urinary frequency, urinary incontinence, two bouts of vomiting between 3 and 5 days ago, mild sore throat, and chronic abdominal pain secondary to underlying cancer diagnosis. Patient denies cough, and throat swelling. She was instructed by her primary oncologist to come to the hospital for further evaluation. Palliative medicine consulted to assist patient and family in determination of goals of care. Patient's daughter reportedly requested palliative consultation. Prior to visiting patient, I spoke with her hospitalist Dr. Kearney. I also contacted the office of her oncologist, Dr. Adriane Bonner in [place] and obtained copies of records from her last several clinic visits. (Copies of these records are appended to her paper chart.) These indicated that she had shown gross disease progression on [facility] chemotherapy and had tolerated treatment very poorly. Because of this, she was felt to not be a candidate for further aggressive chemotherapy and was instead switched over to a palliative program with rituximab/bendamustine. She had completed 1 of a planned 6 cycles of this chemotherapy prior to admission. She and her daughter both say that she is not going to continue with any chemotherapy for the time being, though she says if she improved significantly she might reconsider restarting in the future. Her cancer was originally diagnosed in the summer of 2016, after progressive symptoms over the preceding 6-9 months. She and her daughter do express some resentment that she was not diagnosed earlier. While here, patient initially continued to feel poorly with abdominal discomfort , intermittent nausea and emesis, etc. but now finally seems to be improving. She completed her course of IV antibiotics yesterday. She has developed oral candidiasis and has started treatment for that. Today her nausea is somewhat improved. She has had one episode of reflux (usually uses Nexium at home). Today she feels as if her appetite is doing a bit better. She has had diarrhea (C. difficile negative) which seems to be improving. No dyspnea, chest pain, severe abdominal pain- she does have chronic deep ache in her left flank related to the mass associated with her left kidney. Still feels a bit lightheaded at times and generally feels weak. By improving her nutritional intake once her GI symptoms are controlled, she hopes that she will get stronger and will begin to mobilize. Hospital Course Antoinette Jolley is a 70-year-old female with a past medical history significant for lymphoma on chemotherapy who presented to [facility] emergency department with rigors, chills, and nausea who was admitted for complicated UTI and pyelonephritis. Hospital day #4. 1. Acute complicated urinary tract infection, present on admission. Resolving. - I will DC zosyn on June 14 and no oral antibiotics indicated at this time. - Urine culture negative, as above. 2. Acute pyelonephritis, -Urine culture was negative but did complete a course of iv antibiotics and still with hematuria and abd pain. 3. Diarrhea, acute, not present on admission. Active. - Patient reports several episodes of diarrhea. Last bowel movement was black in color. The patient has mild abdominal tenderness likely from lymphoma. - Hemoglobin stable. Continue to monitor hemoglobin and hematocrit daily. - Ordered stool guaiac, pending. - C. difficile PCR negative as above. -DC metformin -We will check fecal leukocytes, check GI PCR - Since C. difficile was negative we will go ahead and try low-dose Imodium when necessary to control symptoms - We will also initiate lactobacillus probiotics which patient says has helped in the recent past -She took 1 dose of Imodium 2 days ago and has had no further diarrhea. -Stool studies including PCR negative 4. Hematuria - Patient has a history of hematuria associated with UTIs - most likely secondary to friable mucosa -Maybe related to mucositis with chemo but will further investigate with iv contrast CT abd/pelvis to further elucidate ct without contrast findings. -Does have seen on CT of abdomen pelvis with IV contrast significant tumor burden and cannot rule out invasion of the kidney and there is also a 3 mm left nonobstructing ureteral stroma present which certainly could be source of hematuria -With this finding will go ahead and add Flomax to her regimen. - Patient did not tolerate Flomax caused some flushing so we will DC this 5. Acute hypokalemia, present on admission. Resolved. - Repleted as necessary. 6. Oral thrush, acute, not present on admission -We will initiate Mycostatin swish and swallow 4 times a day 7. Chronic nausea vomiting, present on admission -We will go ahead and reinstitute her Protonix -We will put her on scheduled Zofran 4 mg every 6 hours 8. Left-sided abdominal pain, subacute, present on admission Chronic problems: B-cell lymphoma, subacute, present on admission Followed by oncologist at the [facility] Dr. Adriane Schwartz to which I have placed a phone call to discuss case Patient and daughter wish comfort care if no interventions can be done to improve her current condition We will get palliative care consultation Immunocompromised secondary to chemotherapy, present on admission. Stable. - The patient discussed final round of chemotherapy with her oncologist Dr. Altman at [facility] who wishes to discontinue present chemotherapy and will readdress this as an outpatient in the future. Pancytopenia, secondary to chemotherapy. Stable. - Received 2 units PRBC on 06/09/2015 due to hemoglobin of 7.2. Hemoglobin stable. - Continue to monitor daily. GERD, chronic. - Continue Protonix 20 mg daily. Hypertension, chronic. - Continue losartan 50 mg daily. Hyperlipidemia, chronic. - Restart lovastatin 20 mg daily at bedtime at time of discharge. PRN antiemetics: Zofran and promethazine. PRN bowel regimen: Senna and MiraLAX. PRN analgesics: Tylenol. Disposition: Discharge anticipated within 24-48 hours. Patient will follow up with her primary oncologist on discharge for chemotherapy. . Exam Vital Signs (Last) Date Time Temp Pulse Resp B/P Pulse Ox O2 Delivery O2 Flow Rate FiO2 06/17/16 11:55 37.2 73 16 144/75 96 Room Air Exam Constitutional patient in no acute distress Head: Alopecia Chest: Clear to auscultation Cor: Regular rate and rhythm Abdomen: Soft tender over the left upper and left mid abdominal area. No rebound no guarding. Extremities: No pedal edema Neuro: Alert and oriented 3, motor strength is intact bilaterally Test 06/08/16 12:10 06/08/16 14:14 06/09/16 07:01 06/12/16 05:43 Lactic Acid Level 0.9mmol/L (0.4-2.0) Lipase 20U/L (13-60) Urine Color Straw (YELLOW) Urine Appearance Hazy (CLEAR,HAZY) Urine pH 6.5 (5.0-8.0) Urine Specific [place] 1.015 (1.003-1.035) Urine Protein Tracemg/dL (NEG,TRACE) Urine Glucose (UA) Negativemg/dL (NEGATIVE) Urine Ketones Negativemg/dL (NEGATIVE) Urine Occult Blood Large (NEGATIVE) Urine Nitrite Negative (NEGATIVE) Urine Bilirubin Negative (NEGATIVE) Urine Urobilinogen Normalmg/dL (NORMAL) Urine Leukocyte Esterase Trace (NEGATIVE) Urine RBC 11-50/hpf (0-2) Urine WBC 6-10/hpf (0-5) Urine Epithelial Cells Occasional/hpf (NONE-MOD) Urine Crystals None seen (NONE SEEN) Urine Bacteria None/hpf (NONE-FEW) Urine Hyaline Casts None/lpf (NONE) Urine Granular Casts None seen (NONE SEEN) Urine Waxy Casts None seen (NONE SEEN) Urine Red Blood Cell Casts None seen (NONE SEEN) Urine White Blood Cell Casts None seen (NONE SEEN) Urine Mucus None seen (None Seen) Urine Trichomonas None seen (NONE SEEN) Urine Yeast None (NONE SEEN) Urinalysis Comment None Urine Culture Reflexed Indicated Procalcitonin 0.31ng/mL (0.00-0.08) Magnesium Level 1.9mg/dL (1.6-2.6) Test 06/15/16 17:10 06/17/16 05:01 White Blood Count 4.5th/mm3 (3.8-10.1) Red Blood Count 3.24mil/mm3 (3.90-5.20) Hemoglobin 9.2g/dL (12.0-15.6) Hematocrit 29.0% (35.0-46.0) Mean Corpuscular Volume 89.5fL (81-100) Mean Corpuscular Hemoglobin 28.4pg (27.0-35.0) Mean Corpuscular Hemoglobin Concent 31.7% (32.0-37.0) Red Cell Distribution Width 14.9% (12.3-15.4) Platelet Count 49bil/L (150-400) Neutrophils (%) (Auto) 71.7% (40-74) Lymphocytes (%) (Auto) 17.0% (14-46) Monocytes (%) (Auto) 8.7% (4-12) Eosinophils (%) (Auto) 2.0% (0-5) Basophils (%) (Auto) 0.4% (0-3) Sodium Level 136mEq/L (134-144) Potassium Level 3.5mEq/L (3.5-5.2) Chloride Level 96mEq/L (97-108) Carbon Dioxide Level 27mmol/L (18-29) Blood Urea Nitrogen 9mg/dL (8-27) Creatinine 0.84mg/dL (0.57-1.00) Estimat Glomerular Filtration Rate 97mL/min (>59) Glucose Level 136mg/dL (60-99) Calcium Level 9.8mg/dL (8.5-10.1) Total Bilirubin 0.2mg/dL (0.0-1.2) Aspartate Amino Transf (AST/SGOT) 21U/L (0-50) Alanine Aminotransferase (ALT/SGPT) 5U/L (0-32) Alkaline Phosphatase 67U/L (25-165) Total Protein 5.1g/dL (6.4-8.4) Albumin 3.1g/dL (3.4-5.0) Microbiology Results Blood culture 4 show no growth after 2 days. Urine culture shows no growth. C. difficile DNA amplification negative. . Discharge Medications Discharge Medications Esomeprazole Magnesium (Nexium) 20 Mg Capsule.dr 20 MG PO DAILY (Reported) Fexofenadine (Fexofenadine) 60 Mg Tablet 60 MG PO HS (Reported) Losartan Potassium (Losartan Potassium) 50 Mg Tablet 50 MG PO QAM (Reported) Lovastatin (Lovastatin) 20 Mg Tablet 20 MG PO HS (Reported) Metformin (Metformin) 500 Mg Tablet 500 MG PO BID (Reported) Pantoprazole DR (Pantoprazole DR) 40 Mg Tablet.dr 40 MG PO DAILYAC Prescribed by: DEBBIE KEARNEY MD Sucralfate (Sucralfate) 1 Gm/10 Ml Oral.susp 1,000 MG PO TIDAC Prescribed by: DEBBIE KEARNEY MD As needed Lorazepam (Ativan) 0.5 Mg Tablet 0.5 MG PO DAILY PRN PRN For Anxiety or Agitation (Reported) Lorazepam (Lorazepam) 0.5 Mg Tablet 0.5 MG PO TID PRN PRN For Anxiety Prescribed by: DEBBIE KEARNEY MD Ondansetron (Zofran) 4 Mg Tablet 4 MG PO Q4H PRN PRN For Nausea Prescribed by: DEBBIE KEARNEY MD Prochlorperazine Maleate (Prochlorperazine) 10 Mg Tablet 10 MG PO DAILY PRN PRN For Nausea (Reported) oxyCODONE (oxyCODONE) 5 Mg Capsule 5 MG PO Q4H PRN PRN For Pain Prescribed by: DEBBIE KEARNEY MD Followup Plan Disposition: To home with home health care RN and PT consultations Follow-up plan Patient is to follow-up with her oncologist ,Dr Schwartz at the [facility] in 5-7 days sooner if problems. Also recommend follow-up with her urologist Dr. Curiel at the [facility]. Discharge Diet: Other (as tolerated) Discharge Activity: Other (breasts is tolerated) Time spent 60 minutes Debbie Kearney MD Jun 17, 2016 13:44
--- NOTE | 2016-06-17 15:11 | NUR ---
Social Work-discharge: Data:EMR Reviewed. Pt is o nday 9 of hospitalization for pyelonephritis per H&P. Pt is medically stable to discharge today. PT worked with pt and have cleared pt for home with HH. SW followed up with pt and daughter to discuss HH, SW role explained. Daughter in agreement with HH, choice list provided, no agency preference. SW referred to rotating calendar and made referral to [facility] for RN and PT. SW faxed in F2F and orders. Pt's daughter to provide transport home today. All updated and agreeable to plan. Assessment:Pt who would benefit from HH. Plan:Pt to discharge home today via POV. F2F and orders faxed into [facility] for RN and PT. All updated and agreeable to plan. LYNN Do
--- NOTE | 2016-06-17 15:14 | NUR ---
choice list provided. LYNN Do
== END 2016-06-17 13:48 | disposition home health service (06) | DRG 689 ==
LOC: SED 11:20 → MOC 15:19
PROVIDERS: ADMIT Internal Medicine; ATTEND Internal Medicine
PROC: 30233N1 Transfusion of Nonautologous Red Blood Cells into Peripheral Vein, Percutaneous Approach (ICD-10-PCS; principal; 2016-06-09)
DX: N10 Acute pyelonephritis (principal); D61.810 Antineoplastic chemotherapy induced pancytopenia; K92.1 Melena; C83.33 Diffuse large B-cell lymphoma, intra-abdominal lymph nodes; B37.0 Candidal stomatitis; N39.0 Urinary tract infection, site not specified; R31.9 Hematuria, unspecified; E87.6 Hypokalemia; E83.42 Hypomagnesemia; K21.9 Gastro-esophageal reflux disease without esophagitis; I10 Essential (primary) hypertension; E78.5 Hyperlipidemia, unspecified; Z51.5 Encounter for palliative care